=== PATIENT | male | born 1950 | race Caucasian/White ===

== ENCOUNTER 2018-11-13 16:33 | Observation (INO) ==
[2018-11-13] MEDS ORDERED: Morphine Sulfate 2 MG/ML SYRINGE IVP ONE ×2 (18:03→20:51)
[2018-11-13] MEDS ORDERED: Isovue-370 500 ML BOTTLE IVP ONE (18:04)
[2018-11-13 18:36] LABS: Basophils # 0.1 K/mcL (0.0-0.2); Basophils % 0.6 %; Eosinophils # 0.2 K/mcL (0.0-0.6); Hematocrit 42.6 % (37.5-50.1); Hemoglobin 14.1 g/dL (12.9-16.9); Immature Granulocytes % 0.6 % (0-4); Lymphocytes # 1.7 K/mcL (0.6-4.6); Lymphocytes % 14.3 %; Mean Corpuscular HGB Conc 33.1 g/dL (31.6-35.5); Mean Corpuscular Hemoglobin 32.2 pg (28.0-33.3); Mean Corpuscular Volume 97.3 fL (83.0-100.0); Mean Platelet Volume 8.7 fL (9.4-12.4); Monocytes # 1.1 K/mcL (0.0-1.3); Monocytes % 9.2 %; Neutrophils # 8.9 K/mcL (1.6-8.9); Platelet Count 244 K/mcL (140-400); Red Blood Count 4.38 M/mcL (4.19-5.50); Red Cell Distribution Width 13.8 % (11.5-14.5); Segmented Neutrophils % 73.3 %; White Blood Count 12.1 K/mcL (4.3-11.1)
[2018-11-13 18:36] LABS: Bilirubin,Urine Negative (Negative); Blood,Urine Large (Negative); Clarity,Urine Clear (Clear); Color,Urine Yellow (Yellow); Glucose,Urine (UA) Normal (Normal); Ketones,Urine Negative (Negative); Leukocyte Esterase,Urine Negative (Negative); Nitrite,Urine Negative (Negative); Protein,Urine 30 mg/dL (Neg-Trace); Urobilinogen,Urine Normal (Normal)
[2018-11-13 18:38] LABS: Bacteria,Urine None Seen per hpf (None-Few); Hyaline Casts,Urine None Seen per lpf (None-Few); RBC,Urine 15-30 per hpf (0-3); Squamous Epithelial Cell,Urine None Seen per lpf (None-Few); WBC,Urine 0-3 per hpf (0-3)
[2018-11-13 18:57] LABS: Albumin 3.4 g/dL (3.5-5.7); Albumin/Globulin Ratio 1.2 (1.1-2.2); Bilirubin,Direct 0.1 mg/dL (0.0-0.2); Bilirubin,Indirect 0.4 mg/dL (0.0-1.2); Bilirubin,Total 0.5 mg/dL (0.3-1.0); Calcium 9.3 mg/dL (8.6-10.3); Globulin 2.8 g/dL (2.4-3.5); Potassium 4.3 mEq/L (3.5-5.1); Total Protein 6.2 g/dL (6.4-8.9)
[2018-11-13] MEDS ORDERED: Ondansetron 4 MG/2 ML VIAL IVP ONE (20:51)
[2018-11-13] MEDS ORDERED: 0.9 % Sodium Chloride 1,000 ML IVC ONE (20:51)
[2018-11-13] MEDS ORDERED: Ondansetron 4 MG/2 ML VIAL IVP PRN (23:33)
[2018-11-14] MEDS: 0.9 % Sodium Chloride 1,000 ML IVC SCH ×3 (00:04→15:42)
[2018-11-14] MEDS: *HR* Metoprolol 5 MG/5 ML VIAL IVP SCH ×3 (00:05→18:12)
[2018-11-14] MEDS ORDERED: Albuterol 2.5 MG/3 ML NEBULIZER IH PRN ×2 (03:10→14:13)
[2018-11-14] MEDS ORDERED: Lidocaine -MPF 2% 2 ML VIAL ONE (09:52)
[2018-11-14] MEDS ORDERED: Lidocaine HCL 4 ML Topical Solution (Laryng-O-Jet Kit Sterile Pak) TP ONE (09:52)
[2018-11-14] MEDS ORDERED: *HR* Succinylcholine 200 MG/10 ML VIAL IVP ONE (09:52)
[2018-11-14] MEDS ORDERED: *HR* FentaNYL (PF) 100 MCG/2 ML VIAL ONE (09:52)
[2018-11-14] MEDS ORDERED: Ondansetron 4 MG/2 ML VIAL ONE (09:52)
[2018-11-14] MEDS ORDERED: Dexamethasone 4 MG/ML VIAL ONE (09:52)
[2018-11-14] MEDS ORDERED: *HR* Propofol 200 MG/20 ML VIAL IVP ONE (09:53)
[2018-11-14 10:40] LABS: Basophils # 0.1 K/mcL (0.0-0.2); Eosinophils # 0.2 K/mcL (0.0-0.6); Eosinophils % 3.2 %; Hemoglobin 13.5 g/dL (12.9-16.9); Immature Granulocytes % 0.3 % (0-4); Lymphocytes # 1.2 K/mcL (0.6-4.6); Lymphocytes % 17.8 %; Mean Corpuscular HGB Conc 32.1 g/dL (31.6-35.5); Mean Corpuscular Hemoglobin 32.6 pg (28.0-33.3); Mean Corpuscular Volume 101.4 fL (83.0-100.0); Monocytes # 0.7 K/mcL (0.0-1.3); Monocytes % 10.6 %; Neutrophils # 4.7 K/mcL (1.6-8.9); Platelet Count 239 K/mcL (140-400); Red Blood Count 4.14 M/mcL (4.19-5.50); Segmented Neutrophils % 67.1 %
[2018-11-14 11:00] LABS: Calcium 8.9 mg/dL (8.6-10.3); Potassium 4.2 mEq/L (3.5-5.1)
[2018-11-14] MEDS ORDERED: *HR* PHENYLEPHRINE 1,000 MCG/10 ML SYRINGE IVP ONE (12:41)
[2018-11-14] MEDS ORDERED: EPHEDrine 50 MG/ML VIAL ONE (12:45)
[2018-11-14] MEDS ORDERED: *HR* Promethazine 25 MG/ML VIAL IVP PRN (13:07)
[2018-11-14] MEDS ORDERED: *HR* OxyCODONE Immed Rel 5 MG TABLET PO PRN (13:07)
[2018-11-14] MEDS ORDERED: *HR* Labetalol 20 MG/4 ML SYRINGE IVP PRN (13:07)
[2018-11-14] MEDS ORDERED: Ondansetron 4 MG/2 ML VIAL IVP ONE (13:07)
[2018-11-14] MEDS ORDERED: *HR* HYDROmorphone (PF) 1 MG/ML SYRINGE IVP PRN (13:07)
[2018-11-14] MEDS ORDERED: Acetaminophen IV 1,000 MG/100 ML INFUS..BTL IVPB ONE (13:07)
[2018-11-14] MEDS ORDERED: Albuterol 2.5 MG/3 ML NEBULIZER IH ONE (13:07)
[2018-11-14] MEDS ORDERED: Ondansetron 4 MG/2 ML VIAL IVP PRN (14:13)
[2018-11-15] MEDS: *HR* Metoprolol 5 MG/5 ML VIAL IVP SCH ×2 (00:05→05:50)
[2018-11-15] MEDS: 0.9 % Sodium Chloride 1,000 ML IVC SCH ×2 (01:52→05:56)
[2018-11-15 06:50] VITALS: BP 156/74
== END 2018-11-15 11:20 | disposition home or self-care (01) ==
LOC: EMEROOARM 16:33 → 3ANU 16:33
PROVIDERS: ADMIT Surgery; ATTEND Surgery

== ENCOUNTER 2018-11-16 08:37 | Observation (INO) ==
[2018-11-16] MEDS ORDERED: Ondansetron 4 MG/2 ML VIAL IVP ONE (09:06)
[2018-11-16] MEDS ORDERED: Morphine Sulfate 2 MG/ML SYRINGE IVP ONE ×2 (09:06→11:12)
[2018-11-16] MEDS ORDERED: 0.9 % Sodium Chloride 1,000 ML IVC ONE ×2 (09:06→11:12)
--- NOTE | 2018-11-16 09:06 | Emergency Department Note ---
Disposition Clinical Impression: Post-operative pain Hematuria Qualifiers: Hematuria type: other microscopic Qualified Code(s): R31.29 - Other microscopic hematuria Abdominal pain Qualifiers: Abdominal location: generalized Qualified Code(s): R10.84 - Generalized abdominal pain Disposition: Admitted As Inpatient Condition: Fair Referrals: Sugar Enriquez MD [Primary Care Provider] - Time of Disposition: 13:15 Abdominal Pain HPI - General Chief Complaint: ED Abdominal Pain Stated Complaint: abd swelling s/p sx Time Seen by Provider: 11/16/18 08:54 Source: patient Mode of arrival: private vehicle Limitations: no limitations Nursing Notes Reviewed: Yes Vital Signs Reviewed: Yes - History of Present Illness HPI Narrative: Patient presents from home for evaluation of abdominal pain and distention. He states that he had hernia repair surgery on Friday and was doing well until last night. He woke up in the middle of the night and noticed increased pain, then this morning he noticed significant abdominal distention. He also describes having shaking chills. He is not sure if he has had a fever or not. He denies nausea, vomiting, diarrhea, dysuria, increased urinary frequency or hematuria. He denies cough, shortness of breath, dyspnea on exertion, leg pain or swelling, chest pain or syncope. Pt Subjective Complaint: abdominal pain, other (Distention) Onset (ago): hour(s) Consistency: constant Location: diffuse Pain Severity: severe Pain Scale: 10 Quality: cramping, fullness, sharp Radiation: none Migration to: no migration Improves with: nothing Worsens with: movement Context: recent surgery/procedure Associated symptoms: Reports: chills. Denies: nausea, vomiting, diarrhea, fever, constipation, dysuria, hematemesis, hematochezia, melena, hematuria, anorexia, syncope Treatments prior to arrival: none - Related Data Home Medications Medication Instructions Recorded Confirmed Budesonide/Formoterol 160/4.5 2 puff IH BIDR 08/03/15 11/14/18 [Symbicort 160/4.5] Albuterol Neb [Proventil Neb] 2.5 mg IH TID PRN 11/14/18 11/14/18 Metoprolol [Lopressor] 25 mg PO DAILY 11/14/18 11/14/18 Allergies Allergy/AdvReac Type Severity Reaction Status Date / Time No Known Allergies Allergy Verified 11/16/18 08:43 All systems ED: reviewed and negative except as stated. Review of Systems: As Per HPI Constitutional: Reports: chills. Denies: fever (unsure), weakness Cardiovascular: Denies: chest pain, palpitations, dyspnea on exertion, orthopnea, edema, syncope, paroxysmal nocturnal dyspnea Respiratory: Denies: cough, dyspnea, wheezes, hemoptysis, stridor, sputum production Gastrointestinal: Reports: as per HPI, abdominal pain. Denies: nausea, vomiting, diarrhea, constipation, hematemesis, melena, hematochezia Genitourinary: Denies: urgency, dysuria, frequency, hematuria Musculoskeletal: Denies: back pain, joint swelling, arthralgia Integumentary: Denies: rash, lesions Neurological: Denies: headache, weakness, numbness, paresthesias, vertigo Hematological/Lymphatic: Denies: easy bleeding, easy bruising Allergic/Immunologic: Denies: facial swelling Abdominal Pain PMH - Past Medical History Medical history: Reports: atrial fibrillation, CVA, hypertension Reports: diverticulosis, diverticulitis Male Surgical History: Reports: other Psychiatric history: Reports: no psych history - Social History Smoking status: Current every day smoker Alcohol use: Reports: none Drug use: Reports: none Physical Exam - General Limitations: no limitations General appearance: alert, in no apparent distress - Head Head exam: atraumatic, normocephalic, normal inspection - Eye Eye exam: Present: normal appearance. Absent: scleral icterus, conjunctival injection, periorbital swelling - ENT ENT exam: mucous membranes moist - Neck Neck exam: Present: normal inspection, full ROM, trachea midline. Absent: tenderness, meningismus - Respiratory Respiratory exam: Present: normal lung sounds bilaterally. Absent: respiratory distress, wheezes - Cardiovascular Cardiovascular exam: Present: regular rate, normal rhythm, normal heart sounds - Abdominal Exam Abdominal exam: Present: soft, tenderness, distention, guarding, normal bowel sounds, incision, other (Surgical wound in the left lower quadrant with kenn in place. There is a half dollar size erythematous area superior to the middle of the incision). Absent: rigidity, Davis's sign, Rovsing's sign, ascites, mass Abdominal tenderness: Present: diffuse, moderate - Extremities Exam Extremities exam: Present: normal inspection. Absent: pedal edema - Back Exam Back exam: Present: normal inspection - Neurological Exam Neurological exam: Present: alert, oriented X3, CN II-XII intact, normal gait. Absent: motor sensory deficit - Psychiatric Psychiatric exam: Present: normal affect, normal mood - Skin Skin exam: Present: warm, dry, intact, normal color Course Course Narrative: Patient to ED postop day three, status post open repair with mesh of an incisional hernia. He states he was doing well, Friday and Friday, then symptoms began last night with shaking chills, abdominal pain, and this morning with significant abdominal distention. He is not sure if he has had a fever or not. No nausea, vomiting or diarrhea. No bowel movement 3 days. However, he states that he has not had much to eat. Patient brought back to room 18 helped into a gown and and examined. Labs, chest x-ray and pain meds have been ordered. Results discussed with the patient including CT findings and recommendation of the surgeon. Patient states that he is relieved with the results. However, does not fill comfortable going home with this continued pain and distention. He states that he is concerned he would have to come back as his home medications are not controlling his pain. He is also concerned that he has not had a bowel movement two days despite not eating much. Surgicalist paged again for consult. - Reevaluation(s) Reevaluation #1: Patient's pain is a "7/10". He requests additional pain meds. This has been orde red. Time: 11:04 - Consultations Consultation #1: Case discussed with the surgical list, Dr. Rangel Christensen. She recommends CT of the abdomen and pelvis with IV contrast. The patient's GFR is 41. Plan was discussed with the scale technician. She states that she will contact the radiologist and they will most likely recommend reducing the dosage of contrast. Time: 10:51 Consultation #2: Case discussed with the radiologist. He recommends not using IV contrast for the CT abdomen and pelvis for this patient today. Given his newly abnormal GFR. Time: 11:14 Consultation #3: Results and patient current state discussed with Dr. Rangel Christensen. She states that the patient may be admitted to her service. Time: 13:06 Vital Signs Temperature 97.4 F L 11/16/18 08:40 Pulse Rate 85 11/16/18 08:40 Respiratory Rate 16 11/16/18 08:40 Blood Pressure 170/98 11/16/18 08:40 O2 Sat by Pulse Oximetry 96 11/16/18 08:40 Temperature 97.4 F L 11/16/18 09:37 Pulse Rate 81 11/16/18 10:48 Respiratory Rate 16 11/16/18 10:48 Blood Pressure 188/113 11/16/18 10:48 O2 Sat by Pulse Oximetry 100 11/16/18 10:48 Oxygen Delivery Oxygen Delivery Room Air Abdominal Pain - Medical Records Medical records reviewed: Yes I reviewed the patient's medical records. - Lab Data Lab results reviewed: Yes I reviewed the patient's lab results. Lab results narrative: Laboratory Last Values WBC 13.8 K/mcL (4.3-11.1) H D 11/16/18 09:23 RBC 4.21 M/mcL (4.19-5.50) 11/16/18 09:23 Hgb 13.7 g/dL (12.9-16.9) 11/16/18 09:23 Hct 41.0 % (37.5-50.1) 11/16/18 09:23 MCV 97.4 fL (83.0-100.0) 11/16/18 09:23 MCH 32.5 pg (28.0-33.3) 11/16/18 09:23 MCHC 33.4 g/dL (31.6-35.5) 11/16/18 09:23 RDW 14.0 % (11.5-14.5) 11/16/18 09:23 Plt Count 252 K/mcL (140-400) 11/16/18 09:23 MPV 8.9 fL (9.4-12.4) L 11/16/18 09:23 Immature Gran % 0.4 % (0-4) 11/16/18 09:23 Seg Neutrophils % 82.3 % 11/16/18 09:23 Lymphocytes % 9.2 % 11/16/18 09:23 Monocytes % 7.0 % 11/16/18 09:23 Eosinophils % 1.0 % 11/16/18 09:23 Basophils % 0.1 % 11/16/18 09:23 Neutrophils # 11.4 K/mcL (1.6-8.9) H 11/16/18 09:23 Lymphocytes # 1.3 K/mcL (0.6-4.6) 11/16/18 09:23 Monocytes # 1.0 K/mcL (0.0-1.3) 11/16/18 09:23 Eosinophils # 0.1 K/mcL (0.0-0.6) 11/16/18 09:23 Basophils # 0.0 K/mcL (0.0-0.2) 11/16/18 09:23 Sodium 135 mEq/L (136-145) L 11/16/18 09:23 Potassium 4.1 mEq/L (3.5-5.1) 11/16/18 09:23 Chloride 105 mEq/L (98-107) 11/16/18 09:23 Carbon Dioxide 26 mEq/L (23-29) 11/16/18 09:23 BUN 34 mg/dL (8-23) H 11/16/18 09:23 Creatinine 1.67 mg/dL (0.70-1.30) H 11/16/18 09:23 Est GFR ( Amer) 50 (> 60) L 11/16/18 09:23 Est GFR (Non-Af Amer) 41 (> 60) L 11/16/18 09:23 BUN/Creatinine Ratio 20 (6-26) 11/16/18 09:23 Glucose 97 mg/dL (70-105) 11/16/18 09:23 Calculated Osmolality 288 (280-300) 11/16/18 09:23 Lactic Acid 1.2 mmol/L (0.5-2.2) 11/16/18 09:23 Calcium 9.4 mg/dL (8.6-10.3) 11/16/18 09:23 Total Bilirubin 0.4 mg/dL (0.3-1.0) 11/16/18 09:23 Direct Bilirubin 0.1 mg/dL (0.0-0.2) 11/16/18 09:23 Indirect Bilirubin 0.3 mg/dL (0.0-1.2) 11/16/18 09:23 AST 21 Units/L (13-39) 11/16/18 09:23 ALT 9 Units/L (7-52) 11/16/18 09:23 Alkaline Phosphatase 71 Units/L (34-104) 11/16/18 09:23 Serum Total Protein 6.0 g/dL (6.4-8.9) L 11/16/18 09:23 Albumin 3.3 g/dL (3.5-5.7) L 11/16/18 09:23 Globulin 2.7 g/dL (2.4-3.5) 11/16/18 09:23 Albumin/Globulin Ratio 1.2 (1.1-2.2) 11/16/18 09:23 Urine Color Yellow (Yellow) 11/16/18 10:07 Urine Clarity Clear (Clear) 11/16/18 10:07 Urine pH 6.0 pH Units (5.0-8.0) 11/16/18 10:07 Ur Specific [place] 1.015 (1.010-1.025) 11/16/18 10:07 Urine Protein 100 mg/dL (Neg-Trace) H 11/16/18 10:07 Urine Glucose (UA) Normal mg/dL (Normal) 11/16/18 10:07 Urine Ketones Negative mg/dL (Negative) 11/16/18 10:07 Urine Blood Large (Negative) H 11/16/18 10:07 Urine Nitrite Negative (Negative) 11/16/18 10:07 Urine Bilirubin Negative (Negative) 11/16/18 10:07 Urine Urobilinogen Normal mg/dL (Normal) 11/16/18 10:07 Ur Leukocyte Esterase Negative (Negative) 11/16/18 10:07 Urine Microscopic RBC 50-100 per hpf (0-3) H 11/16/18 10:07 Urine Microscopic WBC 0-3 per hpf (0-3) 11/16/18 10:07 Ur Squamous Epith Cells Few per lpf (None-Few) 11/16/18 10:07 Urine Bacteria None Seen per hpf (None-Few) 11/16/18 10:07 Hyaline Casts None Seen per lpf (None-Few) 11/16/18 10:07 Ur Culture Indicated? NO (NO) 11/16/18 10:07 Result diagrams: 11/16/18 09:23 11/16/18 09:23 Lab Results 11/16/18 11/16/18 11/16/18 Range/Units 09:23 09:23 09:23 WBC 13.8 H D (4.3-11.1) K/mcL RBC 4.21 (4.19-5.50) M/mcL Hgb 13.7 (12.9-16.9) g/dL Hct 41.0 (37.5-50.1) % MCV 97.4 (83.0-100.0) fL MCH 32.5 (28.0-33.3) pg MCHC 33.4 (31.6-35.5) g/dL RDW 14.0 (11.5-14.5) % Plt Count 252 (140-400) K/mcL MPV 8.9 L (9.4-12.4) fL Immature Gran % 0.4 (0-4) % Seg Neutrophils % 82.3 % Lymphocytes % 9.2 % Monocytes % 7.0 % Eosinophils % 1.0 % Basophils % 0.1 % Neutrophils # 11.4 H (1.6-8.9) K/mcL Lymphocytes # 1.3 (0.6-4.6) K/mcL Monocytes # 1.0 (0.0-1.3) K/mcL Eosinophils # 0.1 (0.0-0.6) K/mcL Basophils # 0.0 (0.0-0.2) K/mcL Sodium 135 L (136-145) mEq/L Potassium 4.1 (3.5-5.1) mEq/L Chloride 105 (98-107) mEq/L Carbon Dioxide 26 (23-29) mEq/L BUN 34 H (8-23) mg/dL Creatinine 1.67 H (0.70-1.30) mg/dL Est GFR ( Amer) 50 L (> 60) Est GFR (Non-Af Amer) 41 L (> 60) BUN/Creatinine Ratio 20 (6-26) Glucose 97 (70-105) mg/dL Calculated Osmolality 288 (280-300) Lactic Acid 1.2 (0.5-2.2) mmol/L Calcium 9.4 (8.6-10.3) mg/dL Total Bilirubin 0.4 (0.3-1.0) mg/dL Direct Bilirubin 0.1 (0.0-0.2) mg/dL Indirect Bilirubin 0.3 (0.0-1.2) mg/dL AST 21 (13-39) Units/L ALT 9 (7-52) Units/L Alkaline Phosphatase 71 (34-104) Units/L Serum Total Protein 6.0 L (6.4-8.9) g/dL Albumin 3.3 L (3.5-5.7) g/dL Globulin 2.7 (2.4-3.5) g/dL Albumin/Globulin Ratio 1.2 (1.1-2.2) Urine Color (Yellow) Urine Clarity (Clear) Urine pH (5.0-8.0) pH Units Ur Specific [place] (1.010-1.025) Urine Protein (Neg-Trace) mg/dL Urine Glucose (UA) (Normal) mg/dL Urine Ketones (Negative) mg/dL Urine Blood (Negative) Urine Nitrite (Negative) Urine Bilirubin (Negative) Urine Urobilinogen (Normal) mg/dL Ur Leukocyte Esterase (Negative) Urine Microscopic RBC (0-3) per hpf Urine Microscopic WBC (0-3) per hpf Ur Squamous Epith Cells (None-Few) per lpf Urine Bacteria (None-Few) per hpf Hyaline Casts (None-Few) per lpf Ur Culture Indicated? (NO) 11/16/18 Range/Units 10:07 WBC (4.3-11.1) K/mcL RBC (4.19-5.50) M/mcL Hgb (12.9-16.9) g/dL Hct (37.5-50.1) % MCV (83.0-100.0) fL MCH (28.0-33.3) pg MCHC (31.6-35.5) g/dL RDW (11.5-14.5) % Plt Count (140-400) K/mcL MPV (9.4-12.4) fL Immature Gran % (0-4) % Seg Neutrophils % % Lymphocytes % % Monocytes % % Eosinophils % % Basophils % % Neutrophils # (1.6-8.9) K/mcL Lymphocytes # (0.6-4.6) K/mcL Monocytes # (0.0-1.3) K/mcL Eosinophils # (0.0-0.6) K/mcL Basophils # (0.0-0.2) K/mcL Sodium (136-145) mEq/L Potassium (3.5-5.1) mEq/L Chloride (98-107) mEq/L Carbon Dioxide (23-29) mEq/L BUN (8-23) mg/dL Creatinine (0.70-1.30) mg/dL Est GFR ( Amer) (> 60) Est GFR (Non-Af Amer) (> 60) BUN/Creatinine Ratio (6-26) Glucose (70-105) mg/dL Calculated Osmolality (280-300) Lactic Acid (0.5-2.2) mmol/L Calcium (8.6-10.3) mg/dL Total Bilirubin (0.3-1.0) mg/dL Direct Bilirubin (0.0-0.2) mg/dL Indirect Bilirubin (0.0-1.2) mg/dL AST (13-39) Units/L ALT (7-52) Units/L Alkaline Phosphatase (34-104) Units/L Serum Total Protein (6.4-8.9) g/dL Albumin (3.5-5.7) g/dL Globulin (2.4-3.5) g/dL Albumin/Globulin Ratio (1.1-2.2) Urine Color Yellow (Yellow) Urine Clarity Clear (Clear) Urine pH 6.0 (5.0-8.0) pH Units Ur Specific [place] 1.015 (1.010-1.025) Urine Protein 100 H (Neg-Trace) mg/dL Urine Glucose (UA) Normal (Normal) mg/dL Urine Ketones Negative (Negative) mg/dL Urine Blood Large H (Negative) Urine Nitrite Negative (Negative) Urine Bilirubin Negative (Negative) Urine Urobilinogen Normal (Normal) mg/dL Ur Leukocyte Esterase Negative (Negative) Urine Microscopic RBC 50-100 H (0-3) per hpf Urine Microscopic WBC 0-3 (0-3) per hpf Ur Squamous Epith Cells Few (None-Few) per lpf Urine Bacteria None Seen (None-Few) per hpf Hyaline Casts None Seen (None-Few) per lpf Ur Culture Indicated? NO (NO) - Radiology Data Radiology results reviewed: Yes I reviewed the patient's radiology results. Chest X-Ray 11/16/18 09:11 IMPRESSION: No acute pneumonia or significant atelectasis. D/ / Stiven Mayer MD / Stiven Mayer MD Interpreting Provider: Stiven Mayer MD
[2018-11-16 09:35] LABS: Basophils % 0.1 %; Eosinophils # 0.1 K/mcL (0.0-0.6); Hemoglobin 13.7 g/dL (12.9-16.9); Immature Granulocytes % 0.4 % (0-4); Lymphocytes # 1.3 K/mcL (0.6-4.6); Lymphocytes % 9.2 %; Mean Corpuscular HGB Conc 33.4 g/dL (31.6-35.5); Mean Corpuscular Hemoglobin 32.5 pg (28.0-33.3); Mean Corpuscular Volume 97.4 fL (83.0-100.0); Mean Platelet Volume 8.9 fL (9.4-12.4); Neutrophils # 11.4 K/mcL (1.6-8.9); Platelet Count 252 K/mcL (140-400); Red Blood Count 4.21 M/mcL (4.19-5.50); Segmented Neutrophils % 82.3 %; White Blood Count 13.8 K/mcL (4.3-11.1)
[2018-11-16 09:53] LABS: Albumin 3.3 g/dL (3.5-5.7); Albumin/Globulin Ratio 1.2 (1.1-2.2); Bilirubin,Direct 0.1 mg/dL (0.0-0.2); Bilirubin,Indirect 0.3 mg/dL (0.0-1.2); Bilirubin,Total 0.4 mg/dL (0.3-1.0); Calcium 9.4 mg/dL (8.6-10.3); Globulin 2.7 g/dL (2.4-3.5); Potassium 4.1 mEq/L (3.5-5.1)
[2018-11-16 10:28] LABS: Bilirubin,Urine Negative (Negative); Blood,Urine Large (Negative); Clarity,Urine Clear (Clear); Color,Urine Yellow (Yellow); Glucose,Urine (UA) Normal (Normal); Ketones,Urine Negative (Negative); Leukocyte Esterase,Urine Negative (Negative); Nitrite,Urine Negative (Negative); Protein,Urine 100 mg/dL (Neg-Trace); Specific Gravity,Urine 1.015 (1.010-1.025); Urobilinogen,Urine Normal (Normal)
[2018-11-16 10:34] LABS: Bacteria,Urine None Seen per hpf (None-Few); Hyaline Casts,Urine None Seen per lpf (None-Few); RBC,Urine 50-100 per hpf (0-3); Squamous Epithelial Cell,Urine Few per lpf (None-Few); WBC,Urine 0-3 per hpf (0-3)
[2018-11-16] MEDS ORDERED: Isovue-370 500 ML BOTTLE IVP ONE (10:49)
[2018-11-16] MEDS ORDERED: Mag Hydrox/Al Hydrox/Simeth 30 ML UDC PO ONE (13:24)
[2018-11-16] MEDS ORDERED: Budesonide/Formoterol 160/4.5 1 PUFF INH IH PRN (14:09)
[2018-11-16] MEDS ORDERED: Albuterol 2.5 MG/3 ML NEBULIZER IH PRN (14:09)
--- NOTE | 2018-11-16 14:09 | Acute Care Surgery H&P ---
Date of Encounter: 11/16/18 Time of Encounter: 14:00 Assessment and Plan (1) Abdominal pain Current Visit: Yes Status: Acute The assessment and plan as outlined above was discussed with the patient and/or family members who expressed understanding and agreement. All questions were answered. POD#3 ventral hernia repair with mesh. No complications appreciated. Treat pain with PO Oxycodone and IV acetominophen. IV Zosyn for leukocytosis although, it is unclear as to etiology of elevated white count. Elevated creatinine and low sodium; give IVF with .9 normal saline. Qualifiers: Abdominal location: generalized Qualified Code(s): R10.84 - Generalized abdominal pain (2) Post-operative pain Current Visit: Yes Status: Acute see above (3) HTN (hypertension) Current Visit: Yes Status: Acute Continue home meds Qualifiers: Qualified Code(s): I10 - Essential (primary) hypertension (4) Leukocytosis Current Visit: Yes Status: Acute see above Qualifiers: Leukocytosis type: unspecified Qualified Code(s): D72.829 - Elevated white blood cell count, unspecified (5) Elevated serum creatinine Current Visit: Yes Status: Acute see above (6) Hyponatremia Current Visit: Yes Status: Acute see above History of Present Illness Chief complaint: abdominal pain HPI: Mr. Emanuel is a 68 year old male POD#3 ventral hernia repair with mesh presents to [facility] c/o uncontrolled abdominal pain. He reports taking pain medicine that he was prescribed post-op that isn't helping. He reports nausea without vomiting. He reports no BM since surgery. He denies fevers. Past Med Surg Social Fam HX - Past Medical History Medical history: atrial fibrillation, CVA, hypertension Additional medical history: gout Psychiatric history: no psych history - Past Surgical History Surgical History: appendectomy, colostomy, other (The patient reports a fluoroscopic clip placement related to his stroke. This may be an atrial appendage clamp procedure or a watchman procedure) Additional surgical history: Colostomy 2012; since reversed. clip on artery at heart. right leg artery clot removed - Social History Smoking Status: Current every day smoker Smokeless Tobacco Status: No Alcohol use: none Drug use: none Medications and Allergies Budesonide/Formoterol 160/4.5 [Symbicort 160/4.5] 2 puff IH BIDR PRN 05/05/16 [History] Albuterol Neb [Proventil Neb] 2.5 mg IH TID PRN 11/14/18 [History] Metoprolol [Lopressor] 25 mg PO DAILY 11/14/18 [History] Allergy/AdvReac Type Severity Reaction Status Date / Time No Known Allergies Allergy Verified 11/16/18 08:43 Review of Systems All systems PM: The remainder of the systems were reviewed and are negative - Constitutional as per HPI, chills, fatigue, malaise, no fever(s), no night sweats, no weakness - EENT Nose, mouth and throat: dry mouth, nasal congestion, nasal discharge, sinus pain, sinus pressure, sore throat - Cardiovascular no chest pain, no diaphoresis, no dyspnea, no edema - Respiratory no cough, no dyspnea, no wheezing - Gastrointestinal abdominal pain, bloating, constipation, diarrhea, nausea, no heartburn, no hematemesis, no vomiting - Genitourinary no dysuria, no flank pain, no urinary frequency - Musculoskeletal no back pain, no joint swelling, no limited range of motion, no neck pain - Integumentary no dry skin, no pruritus, no rash, no wounds, no jaundice - Neurological no abnormal gait, no confusion, no dizziness, no focal weakness, no weakness - Psychiatric no anxiety, no depression - Hematologic/Lymphatic no easy bleeding, no easy bruising General Surgery Exam Initial Vital Signs Temp Pulse Resp BP Pulse Ox 97.4 F L 85 16 170/98 96 11/16/18 08:40 11/16/18 08:40 11/16/18 08:40 11/16/18 08:40 11/16/18 08:40 - General physical appearance no distress, moderate pain. negative: jaundice - Eyes PERRL, normal ocular movement. negative: icteric - ENT no congestion, dry mucosa. negative: nasal discharge - Neck trachea midline, no venous distension - Respiratory normal respiratory effort, clear to auscultation - Cardiovascular Cardiovascular exam: Present: RRR. Absent: JVD - Abdomen Abdomen general surgery: Present: non tender, distended, tender. Absent: bowel sounds present, soft Abdominal Tenderness: Present: diffusely - Incision Incision: Present: clean and dry, intact - Integumentary Integumentary general surgery: Present: warm and dry - Neurologic Present: CN 2-12 grossly intact, normal coordination - Musculoskeletal Present: normal posture - Psychiatric Psychiatric general surgery: Present: A&Ox3, appropriate Results - Labs 11/16/18 09:23 11/16/18 09:23 Abnormal lab results WBC 13.8 K/mcL (4.3-11.1) H D 11/16/18 09:23 MPV 8.9 fL (9.4-12.4) L 11/16/18 09:23 Neutrophils # 11.4 K/mcL (1.6-8.9) H 11/16/18 09:23 Sodium 135 mEq/L (136-145) L 11/16/18 09:23 BUN 34 mg/dL (8-23) H 11/16/18 09:23 Creatinine 1.67 mg/dL (0.70-1.30) H 11/16/18 09:23 Est GFR ( Amer) 50 (> 60) L 11/16/18 09:23 Est GFR (Non-Af Amer) 41 (> 60) L 11/16/18 09:23 Serum Total Protein 6.0 g/dL (6.4-8.9) L 11/16/18 09:23 Albumin 3.3 g/dL (3.5-5.7) L 11/16/18 09:23 Urine Protein 100 mg/dL (Neg-Trace) H 11/16/18 10:07 Urine Blood Large (Negative) H 11/16/18 10:07 Urine Microscopic RBC 50-100 per hpf (0-3) H 11/16/18 10:07 Diabetes panel 11/16/18 Range/Units 09:23 Sodium 135 L (136-145) mEq/L Potassium 4.1 (3.5-5.1) mEq/L Chloride 105 (98-107) mEq/L Carbon Dioxide 26 (23-29) mEq/L BUN 34 H (8-23) mg/dL Creatinine 1.67 H (0.70-1.30) mg/dL Glucose 97 (70-105) mg/dL Calcium 9.4 (8.6-10.3) mg/dL AST 21 (13-39) Units/L ALT 9 (7-52) Units/L Alkaline Phosphatase 71 (34-104) Units/L Albumin 3.3 L (3.5-5.7) g/dL Calcium panel 11/16/18 Range/Units 09:23 Calcium 9.4 (8.6-10.3) mg/dL Albumin 3.3 L (3.5-5.7) g/dL Pituitary panel 11/16/18 Range/Units 09:23 Sodium 135 L (136-145) mEq/L Potassium 4.1 (3.5-5.1) mEq/L Chloride 105 (98-107) mEq/L Carbon Dioxide 26 (23-29) mEq/L BUN 34 H (8-23) mg/dL Creatinine 1.67 H (0.70-1.30) mg/dL Glucose 97 (70-105) mg/dL Calcium 9.4 (8.6-10.3) mg/dL Adrenal panel 11/16/18 Range/Units 09:23 Sodium 135 L (136-145) mEq/L Potassium 4.1 (3.5-5.1) mEq/L Chloride 105 (98-107) mEq/L Carbon Dioxide 26 (23-29) mEq/L BUN 34 H (8-23) mg/dL Creatinine 1.67 H (0.70-1.30) mg/dL Glucose 97 (70-105) mg/dL Calcium 9.4 (8.6-10.3) mg/dL Total Bilirubin 0.4 (0.3-1.0) mg/dL AST 21 (13-39) Units/L ALT 9 (7-52) Units/L Alkaline Phosphatase 71 (34-104) Units/L Albumin 3.3 L (3.5-5.7) g/dL All other labs normal. - Imaging CT scan - abdomen: image reviewed (No acute process; previous hernia is reduced) CT scan - pelvis: image reviewed
[2018-11-16] MEDS: 0.9 % Sodium Chloride 1,000 ML IVC SCH (15:21)
[2018-11-16] MEDS: Piperacillin/Tazobactam 3.375 GM in 0.9 % Sodium Chloride Mini Bag 100 ML IVPB SCH (17:14)
[2018-11-16] MEDS: Acetaminophen IV 1,000 MG/100 ML INFUS..BTL IVPB SCH (18:21)
[2018-11-16] MEDS: *HR* Heparin 5,000 UNIT/ML VIAL SQ SCH (18:21)
[2018-11-16] MEDS ORDERED: Bisacodyl 10 MG RECTAL SUPPOSITORY RC SCH (21:00)
[2018-11-17] MEDS: Piperacillin/Tazobactam 3.375 GM in 0.9 % Sodium Chloride Mini Bag 100 ML IVPB SCH (01:31)
[2018-11-17] MEDS: Acetaminophen IV 1,000 MG/100 ML INFUS..BTL IVPB SCH ×2 (01:31→06:18)
[2018-11-17] MEDS: 0.9 % Sodium Chloride 1,000 ML IVC SCH (04:27)
[2018-11-17] MEDS: *HR* Heparin 5,000 UNIT/ML VIAL SQ SCH (06:18)
[2018-11-17 06:37] LABS: Basophils # 0.1 K/mcL (0.0-0.2); Basophils % 0.9 %; Eosinophils # 0.3 K/mcL (0.0-0.6); Eosinophils % 3.1 %; Hematocrit 41.1 % (37.5-50.1); Hemoglobin 13.1 g/dL (12.9-16.9); Immature Granulocytes % 0.6 % (0-4); Lymphocytes # 1.6 K/mcL (0.6-4.6); Lymphocytes % 19.7 %; Mean Corpuscular HGB Conc 31.9 g/dL (31.6-35.5); Mean Corpuscular Hemoglobin 32.3 pg (28.0-33.3); Mean Corpuscular Volume 101.2 fL (83.0-100.0); Mean Platelet Volume 9.2 fL (9.4-12.4); Monocytes # 0.8 K/mcL (0.0-1.3); Monocytes % 9.4 %; Neutrophils # 5.4 K/mcL (1.6-8.9); Platelet Count 226 K/mcL (140-400); Red Blood Count 4.06 M/mcL (4.19-5.50); Segmented Neutrophils % 66.3 %; White Blood Count 8.2 K/mcL (4.3-11.1)
[2018-11-17 07:00] LABS: Calcium 8.8 mg/dL (8.6-10.3)
[2018-11-17 07:10] VITALS: BP 158/84
--- NOTE | 2018-11-17 08:39 | Discharge Summary ---
<Palma Knutson - Last Filed: 11/17/18 08:50> Date of Encounter: 11/17/18 Time of Encounter: 08:37 - Discharge Diagnosis (1) Post-operative pain Priority: Primary Status: Acute (2) Constipation Priority: Primary Status: Acute Qualifiers: Constipation type: unspecified constipation type Qualified Code(s): K59.00 - Constipation, unspecified General Surgery Exam Initial Vital Signs Temp Pulse Resp BP Pulse Ox 97.4 F L 85 16 170/98 96 11/16/18 08:40 11/16/18 08:40 11/16/18 08:40 11/16/18 08:40 11/16/18 08:40 - General physical appearance well nourished, no distress - Neck trachea midline - Respiratory normal expansion, normal respiratory effort - Cardiovascular Cardiovascular exam: Present: RRR - Abdomen Abdomen general surgery: Present: bowel sounds present, soft, non tender - Incision Incision: Present: clean and dry, intact - Integumentary Integumentary general surgery: Present: warm and dry - Neurologic Present: normal coordination, normal sensation - Musculoskeletal Present: normal posture - Psychiatric Psychiatric general surgery: Present: A&Ox3 - Hospital Course Hospital course: Mr. Emanuel is a 68 year old male who underwent repair of incarcerated incisional hernia with mesh on 11/14/[address] Garcia. He presented to the emergency department on 11/16/2018 for postoperative abdominal pain and was noted to be constipated. Per orders review, he did not fill his oxycodone that was prescribed to him until 11/15/2018. His postoperative pain was treated with sub lingual oxycodone and he was prescribed about regimen and did have a bowel movement. He states his intends have resolved. He is ambulating avoiding without difficulty, tolerating diet without nausea or vomiting, vital signs stable, and he is afebrile. We will begin discharge planning to home with follow-up in the office in 2 to 3 weeks. - Time Spent with Patient Total time spent providing and/or coordinating discharge services: - Discharge Medications Prescriptions: New Docusate Sodium [Colace] 100 mg PO BID PRN #30 capsule PRN Reason: Contstipation Ibuprofen 800 mg PO Q8H PRN #30 tablet PRN Reason: Postsurgical pain Polyethylene Glycol 3350 [MiraLAX Powder Bulk 17.9 Oz] 1 scoop PO DAILY 30 Days #510 gm Ondansetron ODT [Zofran ODT] 4 mg SL Q4HR PRN #15 tab.rapdis PRN Reason: Postsurgical nausea Continued Albuterol Neb [Proventil Neb] 2.5 mg IH TID PRN PRN Reason: Shortness Of Breath Metoprolol [Lopressor] 25 mg PO DAILY Budesonide/Formoterol 160/4.5 [Symbicort 160/4.5] 2 puff IH BIDR PRN PRN Reason: Shortness Of Breath Home Medications: Budesonide/Formoterol 160/4.5 [Symbicort 160/4.5] 2 puff IH BIDR PRN 08/03/15 [History] Albuterol Neb [Proventil Neb] 2.5 mg IH TID PRN 11/14/18 [History] Metoprolol [Lopressor] 25 mg PO DAILY 11/14/18 [History] Docusate Sodium [Colace] 100 mg PO BID PRN #30 capsule 11/17/18 [Rx] Ibuprofen 800 mg PO Q8H PRN #30 tablet 11/17/18 [Rx] Ondansetron ODT [Zofran ODT] 4 mg SL Q4HR PRN #15 tab.rapdis 11/17/18 [Rx] Polyethylene Glycol 3350 [MiraLAX Powder Bulk 17.9 Oz] 1 scoop PO DAILY 30 Days #510 gm 11/17/18 [Rx] Allergies/Adverse Reactions: Allergy/AdvReac Type Severity Reaction Status Date / Time No Known Allergies Allergy Verified 11/16/18 08:43 Date of admission: 11/16/18 13:27 Primary care physician: Sugar Enriquez Discharging clinician: Bobby Knutson) Anticipated date of discharge: 11/17/18 Labs on day of discharge: Labs from last 24 hours 11/17/18 11/17/18 11/16/18 05:45 05:45 10:07 WBC 8.2 RBC 4.06 L Hgb 13.1 Hct 41.1 MCV 101.2 H MCH 32.3 MCHC 31.9 RDW 14.0 Plt Count 226 MPV 9.2 L Immature Gran % 0.6 Seg Neutrophils % 66.3 Lymphocytes % 19.7 Monocytes % 9.4 Eosinophils % 3.1 Basophils % 0.9 Neutrophils # 5.4 Lymphocytes # 1.6 Monocytes # 0.8 Eosinophils # 0.3 Basophils # 0.1 Sodium 138 Potassium 5.0 Chloride 106 Carbon Dioxide 25 BUN 26 H Creatinine 1.48 H Est GFR ( Amer) 57 L Est GFR (Non-Af Amer) 47 L BUN/Creatinine Ratio 18 Glucose 66 L Calculated Osmolality 289 Lactic Acid Calcium 8.8 Total Bilirubin Direct Bilirubin Indirect Bilirubin AST ALT Alkaline Phosphatase Serum Total Protein Albumin Globulin Albumin/Globulin Ratio Urine Color Yellow Urine Clarity Clear Urine pH 6.0 Ur Specific [place] 1.015 Urine Protein 100 H Urine Glucose (UA) Normal Urine Ketones Negative Urine Blood Large H Urine Nitrite Negative Urine Bilirubin Negative Urine Urobilinogen Normal Ur Leukocyte Esterase Negative Urine Microscopic RBC 50-100 H Urine Microscopic WBC 0-3 Ur Squamous Epith Cells Few Urine Bacteria None Seen Hyaline Casts None Seen Ur Culture Indicated? NO 11/16/18 11/16/18 11/16/18 09:23 09:23 09:23 WBC 13.8 H D RBC 4.21 Hgb 13.7 Hct 41.0 MCV 97.4 MCH 32.5 MCHC 33.4 RDW 14.0 Plt Count 252 MPV 8.9 L Immature Gran % 0.4 Seg Neutrophils % 82.3 Lymphocytes % 9.2 Monocytes % 7.0 Eosinophils % 1.0 Basophils % 0.1 Neutrophils # 11.4 H Lymphocytes # 1.3 Monocytes # 1.0 Eosinophils # 0.1 Basophils # 0.0 Sodium 135 L Potassium 4.1 Chloride 105 Carbon Dioxide 26 BUN 34 H Creatinine 1.67 H Est GFR ( Amer) 50 L Est GFR (Non-Af Amer) 41 L BUN/Creatinine Ratio 20 Glucose 97 Calculated Osmolality 288 Lactic Acid 1.2 Calcium 9.4 Total Bilirubin 0.4 Direct Bilirubin 0.1 Indirect Bilirubin 0.3 AST 21 ALT 9 Alkaline Phosphatase 71 Serum Total Protein 6.0 L Albumin 3.3 L Globulin 2.7 Albumin/Globulin Ratio 1.2 Urine Color Urine Clarity Urine pH Ur Specific [place] Urine Protein Urine Glucose (UA) Urine Ketones Urine Blood Urine Nitrite Urine Bilirubin Urine Urobilinogen Ur Leukocyte Esterase Urine Microscopic RBC Urine Microscopic WBC Ur Squamous Epith Cells Urine Bacteria Hyaline Casts Ur Culture Indicated? - Impressions ITS Impressions Chest X-Ray 11/16/18 09:11 IMPRESSION: No acute pneumonia or significant atelectasis. D/ / 11/16/2018 10:55:05 Stiven Mayer MD / seb Interpreting Provider: Stiven Mayer MD Abdomen/Pelvis CT 11/16/18 10:49 IMPRESSION: 1. No acute intra-abdominal or intrapelvic process. Specifically, no evidence of abscess formation. 2. Previously identified left lower quadrant hernia has been repaired. Small bowel within the hernia on the prior study has been reduced. 3. Periumbilical ventral hernia is identified containing fat but no bowel. 4. Cholelithiasis as on the previous exam. D/ / Zafar Souza MD / Zafar Souza MD Interpreting Provider: Zafar Souza MD - Patient Status Disposition: Home, Self-Care Condition: Fair Functional capacity at discharge: independent ambulation Overall status at discharge: patient is progressing back to baseline - Discharge Instructions Instructions: Laparoscopic Herniorrhaphy (DC) Follow Up With: Sugar Enriquez MD [Primary Care Provider] - Andrzej Garcia MD [Partnered Physician] - 12/08/18 8:30 am Forms: ED Satisfaction Letter, Work/School Release Additional Instructions: General Surgical Discharge Instructions 1. No pushing, pulling, or lifting greater than 15 lbs for 4 weeks (depending upon procedure). 2. You may remove your dressings and shower beginning today, but no tub baths, soaking, or swimming for 2 weeks. 3. No driving for one weeks unless otherwise specified and then you may resume driving when you are off narcotics and are safe to react in a car. 4. Take ibuprofen every 8 hours for discomfort. If this does not relieve discomfort, you may take the as needed Percocet. Eat a small snack with pain medication as this will help reduce the risk of nausea. Take narcotics as directed. Do not take more narcotics then directed and do not share your narcotics with any other person. Do not drink alcohol while on narcotics. You can take the Zofran/ondansetron if needed for nausea or with a dose of narcotics to prevent nausea. 5. Take stool softeners (Colace) or a water based laxative (Miralax) while taking narcotics. You may hold for loose stools. 6. Report any fevers greater than 100.5F, increase abdominal discomfort, drainage that looks like pus, increased redness or pain at the surgical site, or any vomiting. 7. Report any pain in the calves, shortness of breath, or rapid heartbeat. 8. Follow-up in the office as directed. 9. If you were prescribed antibiotics, do not stop them without talking to your provider. - Diet and Activity Activity: increase activity as tolerated, return to school once cleared by your PCP/specialist Diet: advance to your usual diet <Bobby Ibarra - Last Filed: 11/17/18 14:06> Date of Encounter: 11/17/18 - Discharge Diagnosis (1) Abdominal pain Status: Acute Qualifiers: Abdominal location: generalized Qualified Code(s): R10.84 - Generalized abdominal pain (2) Post-operative pain Status: Acute (3) HTN (hypertension) Status: Acute Qualifiers: Qualified Code(s): I10 - Essential (primary) hypertension (4) Leukocytosis Status: Acute Qualifiers: Leukocytosis type: unspecified Qualified Code(s): D72.829 - Elevated white blood cell count, unspecified (5) Elevated serum creatinine Status: Acute (6) Hyponatremia Status: Acute General Surgery Exam Initial Vital Signs Temp Pulse Resp BP Pulse Ox 97.4 F L 85 16 170/98 96 11/16/18 08:40 11/16/18 08:40 11/16/18 08:40 11/16/18 08:40 11/16/18 08:40 - Hospital Course Hospital course: Mr. Emanuel is a 68 year old male - Time Spent with Patient Total time spent providing and/or coordinating discharge services: Date of admission: 11/16/18 13:27 Primary care physician: Sugar Enriquez Labs on day of discharge: Labs from last 24 hours 11/17/18 11/17/18 05:45 05:45 WBC 8.2 RBC 4.06 L Hgb 13.1 Hct 41.1 MCV 101.2 H MCH 32.3 MCHC 31.9 RDW 14.0 Plt Count 226 MPV 9.2 L Immature Gran % 0.6 Seg Neutrophils % 66.3 Lymphocytes % 19.7 Monocytes % 9.4 Eosinophils % 3.1 Basophils % 0.9 Neutrophils # 5.4 Lymphocytes # 1.6 Monocytes # 0.8 Eosinophils # 0.3 Basophils # 0.1 Sodium 138 Potassium 5.0 Chloride 106 Carbon Dioxide 25 BUN 26 H Creatinine 1.48 H Est GFR ( Amer) 57 L Est GFR (Non-Af Amer) 47 L BUN/Creatinine Ratio 18 Glucose 66 L Calculated Osmolality 289 Calcium 8.8 - Impressions ITS Impressions Chest X-Ray 11/16/18 09:11 IMPRESSION: No acute pneumonia or significant atelectasis. D/ / 11/16/2018 10:55:05 Stiven Mayer MD / seb Interpreting Provider: Stiven Mayer MD Abdomen/Pelvis CT 11/16/18 10:49 IMPRESSION: 1. No acute intra-abdominal or intrapelvic process. Specifically, no evidence of abscess formation. 2. Previously identified left lower quadrant hernia has been repaired. Small bowel within the hernia on the prior study has been reduced. 3. Periumbilical ventral hernia is identified containing fat but no bowel. 4. Cholelithiasis as on the previous exam. D/ / Zafar Souza MD / Zafar Souza MD Interpreting Provider: Zafar Souza MD - Attending Attestation I examined this patient and my medical decision-making was reviewed with the HYDROBLASTER. I agree with the documented findings, disposition and treatment plan as described to the extent set forth below. Pt much improved. Admitted to [facility] for post-op pain on POD#3 lap carlitos. Pain is much better tolerated and pt with +BM. F/U as scheduled.
== END 2018-11-17 10:26 | disposition home or self-care (01) ==
LOC: 3ANU 08:37 → EMEROOARM 08:37 → 3ANU 14:33
PROVIDERS: ADMIT Surgery; ATTEND Surgery

== ENCOUNTER 2019-07-16 14:48 | Inpatient (IN) ==
[2019-07-16] MEDS ORDERED: Isovue-370 500 ML BOTTLE IVP ONE ×2 (15:26→15:30)
[2019-07-16] MEDS ORDERED: *HR* FentaNYL (PF) 100 MCG/2 ML VIAL IVP ONE (15:26)
[2019-07-16 15:39] LABS: Basophils # 0.1 K/mcL (0.0-0.2); Basophils % 0.5 %; Eosinophils # 0.2 K/mcL (0.0-0.6); Eosinophils % 1.6 %; Hematocrit 34.4 % (37.5-50.1); Immature Granulocytes % 0.6 % (0-4); Lymphocytes # 1.3 K/mcL (0.6-4.6); Lymphocytes % 10.3 %; Mean Platelet Volume 9.1 fL (9.4-12.4); Monocytes % 7.4 %; Neutrophils # 10.2 K/mcL (1.6-8.9); Platelet Count 283 K/mcL (140-400); Red Blood Count 3.44 M/mcL (4.19-5.50); Red Cell Distribution Width 14.3 % (11.5-14.5); Segmented Neutrophils % 79.6 %; White Blood Count 12.8 K/mcL (4.3-11.1)
[2019-07-16 15:56] LABS: Prothrombin Time 11.1 Seconds (9.4-12.1)
[2019-07-16 15:57] LABS: Calcium 9.2 mg/dL (8.6-10.3); Potassium 4.8 mEq/L (3.5-5.1)
[2019-07-16 15:59] LABS: Activated Partial Thrombo Time 31.8 Seconds (26.0-36.0)
[2019-07-16] MEDS ORDERED: 0.9 % Sodium Chloride 1,000 ML IVC ONE (16:14)
[2019-07-16] MEDS ORDERED: *HR* HYDROmorphone (PF) 1 MG/ML SYRINGE IVP ONE ×3 (16:17→18:52)
[2019-07-16] MEDS ORDERED: *HR* Promethazine 25 MG/ML VIAL IVP ONE (16:18)
[2019-07-16] MEDS ORDERED: Vancomycin 1,000 MG VIAL ONE (19:41)
[2019-07-16] MEDS ORDERED: Heparin 1,000 UNITS/500 mL 1,000 ML ONE (19:41)
[2019-07-16] MEDS ORDERED: *HR* Propofol 200 MG/20 ML VIAL IVP ONE (19:42)
[2019-07-16] MEDS ORDERED: *HR* FentaNYL (PF) 100 MCG/2 ML VIAL ONE (19:42)
[2019-07-16] MEDS ORDERED: *HR* Rocuronium Bromide 50 MG/5 ML VIAL ONE (19:46)
[2019-07-16] MEDS ORDERED: Dexamethasone 4 MG/ML VIAL ONE (19:46)
[2019-07-16] MEDS ORDERED: Ondansetron 4 MG/2 ML VIAL ONE (19:46)
[2019-07-16] MEDS ORDERED: Lidocaine -MPF 2% 2 ML VIAL ONE (19:46)
[2019-07-16] MEDS ORDERED: *HR* Succinylcholine 200 MG/10 ML VIAL IVP ONE (19:46)
[2019-07-16] MEDS ORDERED: Acetaminophen IV 1,000 MG/100 ML INFUS..BTL ONE (19:59)
[2019-07-16] MEDS ORDERED: Famotidine 20 MG/2 ML VIAL ONE (20:00)
[2019-07-16] MEDS ORDERED: Naloxone 0.4 MG/ML INJ IVP PRN (20:15)
[2019-07-16] MEDS ORDERED: *HR* Alteplase (Cathflo) 2 MG VIAL IVP ONE (20:45)
[2019-07-16] MEDS ORDERED: EPHEDrine 50 MG/ML VIAL ONE (20:52)
[2019-07-16] MEDS ORDERED: *HR* Magnesium Sulfate 1 GM/2 ML VIAL ONE (21:42)
[2019-07-16] MEDS ORDERED: *HR* HYDROmorphone (PF) 1 MG/ML SYRINGE IVP PRN (22:53)
[2019-07-16] MEDS ORDERED: *HR* Labetalol 20 MG/4 ML SYRINGE IVP PRN (22:53)
[2019-07-16] MEDS ORDERED: *HR* HYDROmorphone 2 MG TABLET PO PRN (22:53)
[2019-07-16] MEDS ORDERED: *HR* OxyCODONE Immed Rel 5 MG TABLET PO PRN (22:53)
[2019-07-16] MEDS ORDERED: *HR* Promethazine 25 MG/ML VIAL IVP PRN (22:53)
[2019-07-17] MEDS ORDERED: *HR* Heparin 5,000 UNIT/ML VIAL IVP PRN ×2 (00:16)
[2019-07-17] MEDS ORDERED: *HR* Heparin 5,000 UNIT/ML VIAL IVP ONE (00:16)
[2019-07-17] MEDS ORDERED: Heparin 25,000 UNIT/250 ML D5W 25,000 UNIT/250 ML IV.SOLN IVC SCH (00:30)
[2019-07-17 01:38] LABS: Basophils # 0.1 K/mcL (0.0-0.2); Basophils % 0.4 %; Eosinophils # 0.1 K/mcL (0.0-0.6); Eosinophils % 0.5 %; Hematocrit 33.2 % (37.5-50.1); Hematocrit 33.5 % (37.5-50.1); Hemoglobin 10.5 g/dL (12.9-16.9); Immature Granulocytes % 0.6 % (0-4); Lymphocytes # 0.6 K/mcL (0.6-4.6); Lymphocytes % 4.3 %; Mean Corpuscular HGB Conc 31.3 g/dL (31.6-35.5); Mean Corpuscular HGB Conc 31.6 g/dL (31.6-35.5); Mean Corpuscular Hemoglobin 31.9 pg (28.0-33.3); Mean Corpuscular Hemoglobin 32.4 pg (28.0-33.3); Mean Corpuscular Volume 101.8 fL (83.0-100.0); Mean Corpuscular Volume 102.5 fL (83.0-100.0); Mean Platelet Volume 9.2 fL (9.4-12.4); Monocytes # 0.2 K/mcL (0.0-1.3); Monocytes % 1.7 %; Platelet Count 250 K/mcL (140-400); Platelet Count 257 K/mcL (140-400); Red Blood Count 3.24 M/mcL (4.19-5.50); Red Blood Count 3.29 M/mcL (4.19-5.50); Red Cell Distribution Width 14.5 % (11.5-14.5); Segmented Neutrophils % 92.5 %; White Blood Count 13.9 K/mcL (4.3-11.1); White Blood Count 14.1 K/mcL (4.3-11.1)
[2019-07-17 01:44] LABS: INR 1.1; Prothrombin Time 12.1 Seconds (9.4-12.1)
[2019-07-17 01:53] LABS: Heparin anti-factor XA UFH 1.74 IU/mL (0.30-0.70)
[2019-07-17 01:57] LABS: Calcium 8.6 mg/dL (8.6-10.3); Potassium 4.8 mEq/L (3.5-5.1)
[2019-07-17] MEDS: 0.9 % Sodium Chloride 1,000 ML IVC SCH ×2 (03:02→18:13)
[2019-07-17] MEDS: *HR* HYDROmorphone (PF) 1 MG/ML SYRINGE IVP PRN ×4 (04:57→21:46)
[2019-07-17 06:00] LABS: Hematocrit 32.7 % (37.5-50.1); Hemoglobin 10.4 g/dL (12.9-16.9)
[2019-07-17 08:58] LABS: Hematocrit 33.4 % (37.5-50.1); Hemoglobin 10.4 g/dL (12.9-16.9)
[2019-07-17 11:13] LABS: Hematocrit 32.7 % (37.5-50.1); Hemoglobin 10.4 g/dL (12.9-16.9)
[2019-07-17] MEDS ORDERED: Budesonide/Formoterol 160/4.5 1 PUFF INH IH PRN (13:43)
[2019-07-17 13:53] LABS: Hematocrit 31.6 % (37.5-50.1); Hemoglobin 9.9 g/dL (12.9-16.9)
[2019-07-17] MEDS: *HR* Heparin 5,000 UNIT/ML VIAL SQ SCH ×2 (15:05→21:46)
[2019-07-17] MEDS: Albuterol 2.5 MG/3 ML NEBULIZER IH PRN (22:31)
[2019-07-18 01:55] LABS: Basophils % 0.2 %; Eosinophils # 0.1 K/mcL (0.0-0.6); Eosinophils % 0.7 %; Hemoglobin 8.5 g/dL (12.9-16.9); Immature Granulocytes % 0.6 % (0-4); Lymphocytes # 1.5 K/mcL (0.6-4.6); Lymphocytes % 9.4 %; Mean Corpuscular HGB Conc 31.5 g/dL (31.6-35.5); Mean Corpuscular Volume 101.5 fL (83.0-100.0); Mean Platelet Volume 9.3 fL (9.4-12.4); Monocytes # 1.2 K/mcL (0.0-1.3); Monocytes % 7.4 %; Neutrophils # 13.1 K/mcL (1.6-8.9); Platelet Count 255 K/mcL (140-400); Red Blood Count 2.66 M/mcL (4.19-5.50); Red Cell Distribution Width 14.7 % (11.5-14.5); Segmented Neutrophils % 81.7 %
[2019-07-18 02:16] LABS: Calcium 8.4 mg/dL (8.6-10.3); Potassium 4.9 mEq/L (3.5-5.1)
[2019-07-18] MEDS: *HR* Heparin 5,000 UNIT/ML VIAL SQ SCH ×3 (06:41→21:58)
[2019-07-18] MEDS: 0.9 % Sodium Chloride 1,000 ML IVC SCH ×2 (06:44→17:18)
[2019-07-18] MEDS: *HR* HYDROmorphone (PF) 1 MG/ML SYRINGE IVP PRN (06:48)
[2019-07-18] MEDS ORDERED: Acetaminophen 325 MG TABLET PO PRN (11:53)
[2019-07-18] MEDS: Aspirin 81 MG TAB.CHEW PO SCH (13:08)
[2019-07-18] MEDS: *HR* HYDROcodone/Acet 5/325 mg TABLET PO PRN (13:08)
[2019-07-18 17:19] LABS: Basophils % 0.3 %; Eosinophils # 0.3 K/mcL (0.0-0.6); Eosinophils % 2.2 %; Hematocrit 26.5 % (37.5-50.1); Hemoglobin 8.6 g/dL (12.9-16.9); Immature Granulocytes % 0.7 % (0-4); Lymphocytes # 1.7 K/mcL (0.6-4.6); Lymphocytes % 14.9 %; Mean Corpuscular HGB Conc 32.5 g/dL (31.6-35.5); Mean Corpuscular Hemoglobin 33.2 pg (28.0-33.3); Mean Corpuscular Volume 102.3 fL (83.0-100.0); Mean Platelet Volume 8.9 fL (9.4-12.4); Monocytes % 8.6 %; Neutrophils # 8.5 K/mcL (1.6-8.9); Platelet Count 231 K/mcL (140-400); Red Blood Count 2.59 M/mcL (4.19-5.50); Red Cell Distribution Width 15.1 % (11.5-14.5); Segmented Neutrophils % 73.3 %; White Blood Count 11.6 K/mcL (4.3-11.1)
[2019-07-18 18:11] LABS: Bilirubin,Urine Negative (Negative); Blood,Urine Large (Negative); Clarity,Urine Clear (Clear); Color,Urine Yellow (Yellow); Glucose,Urine (UA) Normal (Normal); Ketones,Urine Negative (Negative); Leukocyte Esterase,Urine Negative (Negative); Nitrite,Urine Negative (Negative); Protein,Urine 30 mg/dL (Neg-Trace); Urobilinogen,Urine Normal (Normal)
[2019-07-18 18:13] LABS: Bacteria,Urine None Seen per hpf (None-Few); Hyaline Casts,Urine None Seen per lpf (None-Few); RBC,Urine 15-30 per hpf (0-3); Squamous Epithelial Cell,Urine None Seen per lpf (None-Few)
[2019-07-18 18:19] LABS: Sodium, Urine 63.3 mEq/L
[2019-07-18] MEDS: Albuterol 2.5 MG/3 ML NEBULIZER IH PRN (22:04)
[2019-07-19] MEDS: *HR* OxyCODONE Immed Rel 5 MG TABLET PO PRN ×2 (02:32→11:04)
[2019-07-19] MEDS: 0.9 % Sodium Chloride 1,000 ML IVC SCH ×3 (03:13→13:36)
[2019-07-19] MEDS ORDERED: *HR* LORazepam 2 MG/ML VIAL IVP ONE (04:25)
[2019-07-19 05:57] LABS: Basophils # 0.1 K/mcL (0.0-0.2); Basophils % 0.4 %; Eosinophils # 0.4 K/mcL (0.0-0.6); Hematocrit 26.7 % (37.5-50.1); Hemoglobin 8.5 g/dL (12.9-16.9); Immature Granulocytes % 0.4 % (0-4); Lymphocytes # 1.8 K/mcL (0.6-4.6); Mean Corpuscular HGB Conc 31.8 g/dL (31.6-35.5); Mean Corpuscular Hemoglobin 32.4 pg (28.0-33.3); Mean Corpuscular Volume 101.9 fL (83.0-100.0); Mean Platelet Volume 9.2 fL (9.4-12.4); Monocytes # 1.2 K/mcL (0.0-1.3); Monocytes % 9.7 %; Neutrophils # 8.6 K/mcL (1.6-8.9); Platelet Count 253 K/mcL (140-400); Red Blood Count 2.62 M/mcL (4.19-5.50); Segmented Neutrophils % 71.5 %
[2019-07-19 06:16] LABS: Calcium 8.5 mg/dL (8.6-10.3); Potassium 4.9 mEq/L (3.5-5.1)
[2019-07-19] MEDS: *HR* Heparin 5,000 UNIT/ML VIAL SQ SCH ×3 (06:39→20:44)
[2019-07-19] MEDS: Aspirin 81 MG TAB.CHEW PO SCH (07:56)
[2019-07-19] MEDS ORDERED: *HR* LORazepam 2 MG/ML VIAL IVP PRN ×3 (09:37)
[2019-07-19] MEDS: *HR* HYDROmorphone PF 0.5 MG/0.5 ML SYRINGE IVP PRN (11:14)
[2019-07-19 13:55] LABS: Complement C3 87 mg/dL (87-200)
[2019-07-19 18:24] LABS: Thyroid Stimulating Hormone 3.272 mcIU/mL (0.340-5.600)
[2019-07-19 18:34] LABS: Folate 12.8 ng/mL (3.0-16.0)
[2019-07-19] MEDS: *HR* HYDROcodone/Acet 5/325 mg TABLET PO PRN (20:45)
[2019-07-19] MEDS: Nicotine 7 MG PATCH.TD24 TD SCH (20:46)
[2019-07-20] MEDS: *HR* OxyCODONE Immed Rel 5 MG TABLET PO PRN ×2 (00:07→19:51)
[2019-07-20 03:58] LABS: Basophils # 0.1 K/mcL (0.0-0.2); Basophils % 0.7 %; Eosinophils # 0.3 K/mcL (0.0-0.6); Eosinophils % 2.8 %; Hematocrit 26.4 % (37.5-50.1); Hemoglobin 8.4 g/dL (12.9-16.9); Immature Granulocytes % 0.4 % (0-4); Lymphocytes # 1.4 K/mcL (0.6-4.6); Lymphocytes % 13.7 %; Mean Corpuscular HGB Conc 31.8 g/dL (31.6-35.5); Mean Corpuscular Hemoglobin 32.6 pg (28.0-33.3); Mean Corpuscular Volume 102.3 fL (83.0-100.0); Mean Platelet Volume 9.2 fL (9.4-12.4); Monocytes # 0.9 K/mcL (0.0-1.3); Neutrophils # 7.7 K/mcL (1.6-8.9); Platelet Count 247 K/mcL (140-400); Red Blood Count 2.58 M/mcL (4.19-5.50); Red Cell Distribution Width 15.3 % (11.5-14.5); Segmented Neutrophils % 73.4 %; White Blood Count 10.5 K/mcL (4.3-11.1)
[2019-07-20 04:16] LABS: Calcium 8.2 mg/dL (8.6-10.3); Potassium 5.2 mEq/L (3.5-5.1)
[2019-07-20] MEDS: *HR* HYDROmorphone PF 0.5 MG/0.5 ML SYRINGE IVP PRN ×3 (04:46→15:27)
[2019-07-20] MEDS: *HR* Heparin 5,000 UNIT/ML VIAL SQ SCH (06:00)
[2019-07-20] MEDS: *HR* HYDROcodone/Acet 5/325 mg TABLET PO PRN ×3 (06:00→18:54)
[2019-07-20] MEDS: 0.9 % Sodium Chloride 1,000 ML IVC SCH ×3 (08:57→19:50)
[2019-07-20] MEDS: Nicotine 7 MG PATCH.TD24 TD SCH (08:58)
[2019-07-20] MEDS: Aspirin 81 MG TAB.CHEW PO SCH (08:59)
[2019-07-20] MEDS ORDERED: Folic Acid 1 MG TABLET PO SCH (09:00)
[2019-07-20] MEDS ORDERED: Thiamine (B-1) 100 MG TABLET PO SCH (09:00)
[2019-07-20] MEDS ORDERED: Vitamin B Complex/Vit C/Vit E 1 EACH TABLET PO SCH (09:00)
[2019-07-20] MEDS ORDERED: *HR* Heparin 5,000 UNIT/ML VIAL IVP ONE (11:02)
[2019-07-20] MEDS ORDERED: *HR* Heparin 5,000 UNIT/ML VIAL IVP PRN ×2 (11:02)
[2019-07-20 11:23] LABS: Hematocrit 27.2 % (37.5-50.1); Hemoglobin 8.5 g/dL (12.9-16.9); Mean Corpuscular HGB Conc 31.3 g/dL (31.6-35.5); Mean Corpuscular Hemoglobin 31.8 pg (28.0-33.3); Mean Corpuscular Volume 101.9 fL (83.0-100.0); Mean Platelet Volume 8.9 fL (9.4-12.4); Platelet Count 262 K/mcL (140-400); Red Blood Count 2.67 M/mcL (4.19-5.50); Red Cell Distribution Width 15.3 % (11.5-14.5); White Blood Count 11.3 K/mcL (4.3-11.1)
[2019-07-20 11:30] LABS: Heparin anti-factor XA UFH < 0.04 IU/mL (0.30-0.70)
[2019-07-20] MEDS: Heparin 25,000 UNIT/250 ML D5W 25,000 UNIT/250 ML IV.SOLN IVC SCH (12:37)
[2019-07-20 12:49] LABS: Albumin 3.1 g/dL (3.5-5.7); Albumin/Globulin Ratio 1.3 (1.1-2.2); Bilirubin,Total 0.5 mg/dL (0.3-1.0); Calcium 8.6 mg/dL (8.6-10.3); Globulin 2.4 g/dL (2.4-3.5); Potassium 5.1 mEq/L (3.5-5.1); Total Protein 5.5 g/dL (6.4-8.9)
[2019-07-20] MEDS ORDERED: Perflutren Lipid Microsphere 1.3 ML in 0.9 % Sodium Chloride 8.7 ML IVP ONE (19:39)
[2019-07-20] MEDS ORDERED: QUEtiapine Fumarate 25 MG TABLET PO SCH (21:00)
[2019-07-20] MEDS ORDERED: QUEtiapine Fumarate 25 MG TABLET PO PRN (21:00)
[2019-07-21 01:18] LABS: Hemoglobin 8.1 g/dL (12.9-16.9); Mean Corpuscular HGB Conc 32.4 g/dL (31.6-35.5); Mean Corpuscular Hemoglobin 32.8 pg (28.0-33.3); Mean Corpuscular Volume 101.2 fL (83.0-100.0); Mean Platelet Volume 8.8 fL (9.4-12.4); Platelet Count 254 K/mcL (140-400); Red Blood Count 2.47 M/mcL (4.19-5.50); Red Cell Distribution Width 15.2 % (11.5-14.5); White Blood Count 11.1 K/mcL (4.3-11.1)
[2019-07-21 01:38] LABS: Calcium 8.5 mg/dL (8.6-10.3); Potassium 4.8 mEq/L (3.5-5.1)
[2019-07-21] MEDS: *HR* OxyCODONE Immed Rel 5 MG TABLET PO PRN ×3 (02:06→19:58)
[2019-07-21] MEDS: Aspirin 81 MG TAB.CHEW PO SCH (07:55)
[2019-07-21] MEDS: Nicotine 7 MG PATCH.TD24 TD SCH (07:55)
[2019-07-21] MEDS ORDERED: QUEtiapine Fumarate 25 MG TABLET PO PRN (12:57)
[2019-07-21] MEDS: *HR* HYDROcodone/Acet 5/325 mg TABLET PO PRN (15:04)
[2019-07-21] MEDS: Heparin 25,000 UNIT/250 ML D5W 25,000 UNIT/250 ML IV.SOLN IVC SCH (15:45)
[2019-07-21 16:22] LABS: Bilirubin,Urine Negative (Negative); Blood,Urine Large (Negative); Clarity,Urine Clear (Clear); Color,Urine Yellow (Yellow); Glucose,Urine (UA) Normal (Normal); Ketones,Urine Negative (Negative); Leukocyte Esterase,Urine Negative (Negative); Nitrite,Urine Negative (Negative); Protein,Urine 30 mg/dL (Neg-Trace); Specific Gravity,Urine 1.016 (1.010-1.025); Urobilinogen,Urine Normal (Normal)
[2019-07-21 16:24] LABS: Bacteria,Urine None Seen per hpf (None-Few); Hyaline Casts,Urine None Seen per lpf (None-Few); RBC,Urine 30-50 per hpf (0-3); Squamous Epithelial Cell,Urine Few per lpf (None-Few); WBC,Urine 0-3 per hpf (0-3)
[2019-07-21] MEDS: *HR* Acetylcysteine 20% 600 MG/3 ML ORAL SYRINGE PO SCH (19:58)
[2019-07-22 03:00] LABS: Basophils % 0.3 %; Eosinophils # 0.3 K/mcL (0.0-0.6); Eosinophils % 2.5 %; Hematocrit 29.1 % (37.5-50.1); Hemoglobin 9.1 g/dL (12.9-16.9); Hemoglobin 9.3 g/dL (12.9-16.9); Immature Granulocytes % 0.6 % (0-4); Lymphocytes % 7.2 %; Mean Corpuscular HGB Conc 32.5 g/dL (31.6-35.5); Mean Corpuscular Hemoglobin 32.4 pg (28.0-33.3); Mean Corpuscular Hemoglobin 32.7 pg (28.0-33.3); Mean Corpuscular Volume 100.7 fL (83.0-100.0); Mean Corpuscular Volume 101.4 fL (83.0-100.0); Mean Platelet Volume 8.8 fL (9.4-12.4); Mean Platelet Volume 8.9 fL (9.4-12.4); Monocytes # 1.2 K/mcL (0.0-1.3); Neutrophils # 10.8 K/mcL (1.6-8.9); Platelet Count 269 K/mcL (140-400); Platelet Count 286 K/mcL (140-400); Red Blood Count 2.78 M/mcL (4.19-5.50); Red Blood Count 2.87 M/mcL (4.19-5.50); Red Cell Distribution Width 14.9 % (11.5-14.5); Segmented Neutrophils % 80.4 %; White Blood Count 13.4 K/mcL (4.3-11.1); White Blood Count 13.6 K/mcL (4.3-11.1)
[2019-07-22 03:19] LABS: Calcium 8.8 mg/dL (8.6-10.3); Potassium 4.5 mEq/L (3.5-5.1)
[2019-07-22] MEDS: *HR* HYDROcodone/Acet 5/325 mg TABLET PO PRN (03:59)
[2019-07-22] MEDS ORDERED: *HR* Heparin 10,000 UNIT/10 ML VIAL ONE (08:09)
[2019-07-22] MEDS ORDERED: Isovue-300 200 mL Infus..BTL ONE ×2 (08:09)
[2019-07-22] MEDS: Aspirin 81 MG TAB.CHEW PO SCH (08:17)
[2019-07-22] MEDS: Nicotine 7 MG PATCH.TD24 TD SCH (08:17)
[2019-07-22] MEDS ORDERED: 0.9 % Sodium Chloride 1,000 ML ONE ×2 (08:17→08:53)
[2019-07-22] MEDS ORDERED: *HR* Midazolam HCl 2 MG/2 ML VIAL ONE (09:00)
[2019-07-22] MEDS ORDERED: *HR* FentaNYL (PF) 100 MCG/2 ML VIAL ONE (09:00)
[2019-07-22] MEDS ORDERED: Heparin 1,000 UNITS/500 mL 500 ML ONE (10:19)
[2019-07-22] MEDS: 0.9 % Sodium Chloride 1,000 ML IVC SCH ×2 (12:51→22:58)
[2019-07-22] MEDS ORDERED: *HR* Atropine Sulfate 1 MG/10 ML SYRINGE IVP PRN (13:44)
[2019-07-22] MEDS ORDERED: Sulfamethoxazole/Trimeth DS 1 EACH TABLET PO SCH (13:45)
[2019-07-22] MEDS: *HR* Acetylcysteine 20% 600 MG/3 ML ORAL SYRINGE PO SCH ×2 (16:04→20:16)
[2019-07-22] MEDS: Budesonide/Formoterol 160/4.5 1 PUFF INH IH SCH (19:56)
[2019-07-22] MEDS: Doxycycline 100 MG CAPSULE PO SCH (20:14)
[2019-07-23 01:42] LABS: Basophils % 0.2 %; Eosinophils # 0.1 K/mcL (0.0-0.6); Eosinophils % 0.9 %; Hematocrit 26.1 % (37.5-50.1); Hemoglobin 8.2 g/dL (12.9-16.9); Immature Granulocytes % 0.5 % (0-4); Lymphocytes # 0.9 K/mcL (0.6-4.6); Mean Corpuscular HGB Conc 31.4 g/dL (31.6-35.5); Mean Corpuscular Hemoglobin 31.9 pg (28.0-33.3); Mean Corpuscular Volume 101.6 fL (83.0-100.0); Mean Platelet Volume 9.1 fL (9.4-12.4); Monocytes # 1.3 K/mcL (0.0-1.3); Monocytes % 9.5 %; Neutrophils # 10.9 K/mcL (1.6-8.9); Platelet Count 275 K/mcL (140-400); Red Blood Count 2.57 M/mcL (4.19-5.50); Segmented Neutrophils % 81.9 %; White Blood Count 13.3 K/mcL (4.3-11.1)
[2019-07-23 01:49] LABS: Calcium 8.3 mg/dL (8.6-10.3); Potassium 4.4 mEq/L (3.5-5.1)
[2019-07-23] MEDS: *HR* OxyCODONE Immed Rel 5 MG TABLET PO PRN ×3 (01:56→21:42)
[2019-07-23] MEDS: Heparin 25,000 UNIT/250 ML D5W 25,000 UNIT/250 ML IV.SOLN IVC SCH (03:23)
[2019-07-23] MEDS: Doxycycline 100 MG CAPSULE PO SCH ×2 (07:54→21:42)
[2019-07-23] MEDS: 0.9 % Sodium Chloride 1,000 ML IVC SCH (07:54)
[2019-07-23] MEDS: Aspirin 81 MG TAB.CHEW PO SCH (07:54)
[2019-07-23] MEDS: Budesonide/Formoterol 160/4.5 1 PUFF INH IH SCH ×2 (07:55→20:28)
[2019-07-23] MEDS: Nicotine 7 MG PATCH.TD24 TD SCH (07:55)
[2019-07-23] MEDS: *HR* Acetylcysteine 20% 600 MG/3 ML ORAL SYRINGE PO SCH (08:05)
[2019-07-23] MEDS: *HR* HYDROcodone/Acet 5/325 mg TABLET PO PRN (14:11)
[2019-07-24 01:56] LABS: Basophils % 0.3 %; Eosinophils # 0.1 K/mcL (0.0-0.6); Eosinophils % 0.9 %; Hematocrit 23.6 % (37.5-50.1); Hemoglobin 7.7 g/dL (12.9-16.9); Immature Granulocytes % 0.9 % (0-4); Lymphocytes # 1.2 K/mcL (0.6-4.6); Lymphocytes % 8.4 %; Mean Corpuscular HGB Conc 32.6 g/dL (31.6-35.5); Mean Corpuscular Hemoglobin 32.8 pg (28.0-33.3); Mean Corpuscular Volume 100.4 fL (83.0-100.0); Mean Platelet Volume 9.8 fL (9.4-12.4); Monocytes # 1.3 K/mcL (0.0-1.3); Monocytes % 9.4 %; Neutrophils # 11.3 K/mcL (1.6-8.9); Nucleated Red Blood Cells 0.1 /100 WBC (0); Platelet Count 273 K/mcL (140-400); Red Blood Count 2.35 M/mcL (4.19-5.50); Red Cell Distribution Width 15.3 % (11.5-14.5); Segmented Neutrophils % 80.1 %; White Blood Count 14.1 K/mcL (4.3-11.1)
[2019-07-24 02:17] LABS: Calcium 8.2 mg/dL (8.6-10.3); Potassium 4.4 mEq/L (3.5-5.1)
[2019-07-24] MEDS ORDERED: ceFAZolin 2,000 MG in 0.9 % Sodium Chloride 100 ML IVPB ONE (07:00)
[2019-07-24] MEDS: 0.9 % Sodium Chloride 1,000 ML IVC SCH ×2 (07:10→17:22)
[2019-07-24] MEDS ORDERED: Heparin 1,000 UNITS/500 mL 1,000 ML ONE (07:11)
[2019-07-24] MEDS ORDERED: *HR* Propofol 200 MG/20 ML VIAL IVP ONE (07:14)
[2019-07-24] MEDS ORDERED: *HR* Rocuronium Bromide 50 MG/5 ML VIAL ONE (07:14)
[2019-07-24] MEDS ORDERED: *HR* Succinylcholine 200 MG/10 ML VIAL IVP ONE (07:14)
[2019-07-24] MEDS ORDERED: *HR* Phenylephrine 10 MG/ML VIAL ONE (07:14)
[2019-07-24] MEDS ORDERED: Lidocaine -MPF 2% 2 ML VIAL ONE ×2 (07:14→08:15)
[2019-07-24] MEDS ORDERED: *HR* FentaNYL (PF) 100 MCG/2 ML VIAL ONE ×2 (07:14→10:47)
[2019-07-24] MEDS ORDERED: EPHEDrine 50 MG/ML VIAL ONE (07:27)
[2019-07-24] MEDS ORDERED: Heparin 1,000 UNITS/500 mL 500 ML ONE (07:52)
[2019-07-24] MEDS ORDERED: Ondansetron 4 MG/2 ML VIAL IVP ONE ×2 (07:57→16:40)
[2019-07-24] MEDS ORDERED: *HR* HYDROmorphone PF 0.5 MG/0.5 ML SYRINGE IVP PRN (07:57)
[2019-07-24] MEDS ORDERED: *HR* OxyCODONE Immed Rel 5 MG TABLET PO PRN (07:57)
[2019-07-24] MEDS ORDERED: ceFAZolin 1,000 MG, Sodium Chloride IRRigation 1,000 ML IR ONE (08:00)
[2019-07-24] MEDS ORDERED: Lidocaine Jelly 6ml 1 APPL/6 ML JEL.PF.APP ONE (09:01)
[2019-07-24] MEDS ORDERED: Ondansetron 4 MG/2 ML VIAL ONE ×2 (09:10→14:11)
[2019-07-24] MEDS ORDERED: Dexamethasone 4 MG/ML VIAL ONE (09:10)
[2019-07-24] MEDS: Budesonide/Formoterol 160/4.5 1 PUFF INH IH SCH ×2 (10:44→21:37)
[2019-07-24] MEDS: Doxycycline 100 MG CAPSULE PO SCH ×2 (11:20→20:27)
[2019-07-24] MEDS: Aspirin 81 MG TAB.CHEW PO SCH (11:20)
[2019-07-24] MEDS ORDERED: *HR* Heparin 5,000 UNIT/ML VIAL ONE ×2 (11:54→12:54)
[2019-07-24] MEDS ORDERED: Acetaminophen IV 1,000 MG/100 ML INFUS..BTL ONE (12:13)
[2019-07-24] MEDS ORDERED: Neostigmine Methylsulfate 3 MG/3 ML SYRINGE ONE (14:12)
[2019-07-24] MEDS ORDERED: *HR* Labetalol 20 MG/4 ML SYRINGE IVP ONE (14:38)
[2019-07-24] MEDS ORDERED: *HR* Promethazine 25 MG/ML VIAL IVP PRN (16:40)
[2019-07-24] MEDS ORDERED: Ondansetron 4 MG/2 ML VIAL IVP PRN (16:40)
[2019-07-24] MEDS ORDERED: Albuterol 2.5 MG/3 ML NEBULIZER IH PRN (16:40)
[2019-07-24] MEDS ORDERED: Naloxone 0.4 MG/ML INJ IVP PRN ×2 (16:40)
[2019-07-24] MEDS ORDERED: Acetaminophen 325 MG TABLET PO PRN (16:40)
[2019-07-24] MEDS: ceFAZolin 2,000 MG in 0.9 % Sodium Chloride 100 ML IVPB SCH (17:31)
[2019-07-24] MEDS: Nicotine 7 MG PATCH.TD24 TD SCH (17:39)
[2019-07-24] MEDS: *HR* OxyCODONE Immed Rel 5 MG TABLET PO PRN (20:29)
[2019-07-24] MEDS: QUEtiapine Fumarate 25 MG TABLET PO PRN (21:26)
[2019-07-25] MEDS: ceFAZolin 2,000 MG in 0.9 % Sodium Chloride 100 ML IVPB SCH ×2 (01:27→08:14)
[2019-07-25] MEDS: 0.9 % Sodium Chloride 1,000 ML IVC SCH ×3 (03:45→23:45)
[2019-07-25 05:34] LABS: Calcium 7.9 mg/dL (8.6-10.3); Potassium 4.6 mEq/L (3.5-5.1)
[2019-07-25 05:36] LABS: % Iron Saturation 7 % (20-55); Iron 15 mcg/dL (65-175); Transferrin 151 mg/dL (203-362)
[2019-07-25 05:54] LABS: Ferritin 79 ng/mL (20-250)
[2019-07-25 06:03] LABS: Basophils % 0.1 %; Hematocrit 23.7 % (37.5-50.1); Hemoglobin 7.6 g/dL (12.9-16.9); Immature Granulocytes % 0.6 % (0-4); Lymphocytes # 0.5 K/mcL (0.6-4.6); Lymphocytes % 3.4 %; Mean Corpuscular HGB Conc 32.1 g/dL (31.6-35.5); Mean Corpuscular Hemoglobin 31.5 pg (28.0-33.3); Mean Corpuscular Volume 98.3 fL (83.0-100.0); Monocytes # 1.1 K/mcL (0.0-1.3); Monocytes % 6.9 %; Neutrophils # 13.7 K/mcL (1.6-8.9); Nucleated Red Blood Cells 0.1 /100 WBC (0); Platelet Count 252 K/mcL (140-400); Red Blood Count 2.41 M/mcL (4.19-5.50); Red Cell Distribution Width 17.4 % (11.5-14.5); White Blood Count 15.4 K/mcL (4.3-11.1)
[2019-07-25] MEDS: Budesonide/Formoterol 160/4.5 1 PUFF INH IH SCH ×2 (07:51→20:26)
[2019-07-25] MEDS: *HR* HYDROcodone/Acet 5/325 mg TABLET PO PRN ×2 (08:10→14:25)
[2019-07-25] MEDS: Aspirin 81 MG TAB.CHEW PO SCH (08:10)
[2019-07-25] MEDS: Doxycycline 100 MG CAPSULE PO SCH ×2 (08:10→20:17)
[2019-07-25] MEDS: Nicotine 7 MG PATCH.TD24 TD SCH (08:11)
[2019-07-25] MEDS: *HR* OxyCODONE Immed Rel 5 MG TABLET PO PRN (20:16)
[2019-07-25] MEDS: QUEtiapine Fumarate 25 MG TABLET PO PRN (20:17)
[2019-07-26 05:40] LABS: Basophils % 0.1 %; Eosinophils # 0.1 K/mcL (0.0-0.6); Eosinophils % 0.6 %; Hematocrit 25.9 % (37.5-50.1); Hemoglobin 8.6 g/dL (12.9-16.9); Immature Granulocytes % 0.5 % (0-4); Lymphocytes # 0.9 K/mcL (0.6-4.6); Mean Corpuscular HGB Conc 33.2 g/dL (31.6-35.5); Mean Corpuscular Volume 96.3 fL (83.0-100.0); Mean Platelet Volume 9.3 fL (9.4-12.4); Monocytes % 7.4 %; Neutrophils # 11.3 K/mcL (1.6-8.9); Platelet Count 238 K/mcL (140-400); Red Blood Count 2.69 M/mcL (4.19-5.50); Red Cell Distribution Width 17.1 % (11.5-14.5); Segmented Neutrophils % 84.4 %; White Blood Count 13.4 K/mcL (4.3-11.1)
[2019-07-26 05:59] LABS: Calcium 8.2 mg/dL (8.6-10.3); Potassium 4.6 mEq/L (3.5-5.1)
[2019-07-26] MEDS: Doxycycline 100 MG CAPSULE PO SCH ×2 (08:02→19:40)
[2019-07-26] MEDS: Aspirin 81 MG TAB.CHEW PO SCH (08:02)
[2019-07-26] MEDS: Nicotine 7 MG PATCH.TD24 TD SCH (08:02)
[2019-07-26] MEDS: 0.9 % Sodium Chloride 1,000 ML IVC SCH (09:47)
[2019-07-26] MEDS: Budesonide/Formoterol 160/4.5 1 PUFF INH IH SCH ×2 (10:35→20:10)
[2019-07-26] MEDS ORDERED: 0.9 % Sodium Chloride 1,000 ML IVC SCH (11:39)
[2019-07-26] MEDS: *HR* OxyCODONE Immed Rel 5 MG TABLET PO PRN ×2 (13:41→19:43)
[2019-07-27] MEDS: *HR* HYDROcodone/Acet 5/325 mg TABLET PO PRN (03:52)
[2019-07-27 07:44] LABS: Basophils % 0.1 %; Eosinophils % 0.1 %; Hematocrit 27.2 % (37.5-50.1); Hemoglobin 8.9 g/dL (12.9-16.9); Immature Granulocytes % 0.5 % (0-4); Lymphocytes # 0.7 K/mcL (0.6-4.6); Mean Corpuscular HGB Conc 32.7 g/dL (31.6-35.5); Mean Corpuscular Volume 97.8 fL (83.0-100.0); Mean Platelet Volume 9.6 fL (9.4-12.4); Neutrophils # 15.5 K/mcL (1.6-8.9); Nucleated Red Blood Cells 0.1 /100 WBC (0); Platelet Count 268 K/mcL (140-400); Red Blood Count 2.78 M/mcL (4.19-5.50); Red Cell Distribution Width 16.4 % (11.5-14.5); Segmented Neutrophils % 89.3 %; White Blood Count 17.4 K/mcL (4.3-11.1)
[2019-07-27 08:05] LABS: BUN/Creatinine Ratio 37 (6-26); Blood Urea Nitrogen 50 mg/dL (8-23); Carbon Dioxide 16 mEq/L (23-29); Chloride 112 mEq/L (98-107); Glucose 94 mg/dL (70-105); Osmolality,Calculated 297 (280-300); Potassium 4.6 mEq/L (3.5-5.1); Sodium 137 mEq/L (136-145); eGFR For African Americans > 60 (> 60); eGFR For Non-African Americans 52 (> 60)
[2019-07-27] MEDS: Nicotine 7 MG PATCH.TD24 TD SCH (08:33)
[2019-07-27] MEDS: Doxycycline 100 MG CAPSULE PO SCH ×3 (08:33→21:04)
[2019-07-27] MEDS: Aspirin 81 MG TAB.CHEW PO SCH (08:33)
[2019-07-27] MEDS: Budesonide/Formoterol 160/4.5 1 PUFF INH IH SCH ×2 (08:54→20:28)
[2019-07-27] MEDS ORDERED: *HR* Rocuronium Bromide 50 MG/5 ML VIAL ONE (12:58)
[2019-07-27] MEDS ORDERED: Lidocaine -MPF 2% 2 ML VIAL ONE (12:58)
[2019-07-27] MEDS ORDERED: Ondansetron 4 MG/2 ML VIAL ONE (12:58)
[2019-07-27] MEDS ORDERED: *HR* Succinylcholine 200 MG/10 ML VIAL IVP ONE (12:58)
[2019-07-27] MEDS ORDERED: Dexamethasone 4 MG/ML VIAL ONE (12:58)
[2019-07-27] MEDS ORDERED: *HR* FentaNYL (PF) 100 MCG/2 ML VIAL ONE (12:58)
[2019-07-27] MEDS ORDERED: Albumin Human 5% 12.5 GM/250 ML IV.SOLN ONE (14:58)
[2019-07-27] MEDS ORDERED: Acetaminophen IV 1,000 MG/100 ML INFUS..BTL ONE (15:09)
[2019-07-27] MEDS ORDERED: ceFAZolin 1,000 MG, Sodium Chloride IRRigation 1,000 ML IR ONE ×2 (15:30→18:46)
[2019-07-27] MEDS ORDERED: *HR* Promethazine 25 MG/ML VIAL IVP PRN (16:48)
[2019-07-27] MEDS ORDERED: *HR* OxyCODONE Immed Rel 5 MG TABLET PO PRN (16:48)
[2019-07-27] MEDS ORDERED: Ondansetron 4 MG/2 ML VIAL IVP ONE ×2 (16:48→18:46)
[2019-07-27] MEDS ORDERED: *HR* HYDROmorphone PF 0.5 MG/0.5 ML SYRINGE IVP PRN (16:48)
[2019-07-27] MEDS ORDERED: Albuterol 2.5 MG/3 ML NEBULIZER IH PRN (18:46)
[2019-07-27] MEDS ORDERED: 0.9 % Sodium Chloride 1,000 ML IVC SCH ×2 (18:46)
[2019-07-27] MEDS ORDERED: Naloxone 0.4 MG/ML INJ IVP PRN ×2 (18:46)
[2019-07-27] MEDS ORDERED: Ondansetron 4 MG/2 ML VIAL IVP PRN (18:46)
[2019-07-27] MEDS ORDERED: QUEtiapine Fumarate 25 MG TABLET PO PRN (18:46)
[2019-07-27] MEDS ORDERED: Acetaminophen 325 MG TABLET PO PRN (18:46)
[2019-07-27] MEDS: ceFAZolin 2,000 MG in 0.9 % Sodium Chloride 100 ML IVPB SCH (23:51)
[2019-07-28] MEDS: *HR* OxyCODONE Immed Rel 5 MG TABLET PO PRN ×3 (04:17→19:38)
[2019-07-28 07:26] LABS: Basophils % 0.1 %; Hematocrit 22.7 % (37.5-50.1); Immature Granulocytes % 0.6 % (0-4); Lymphocytes # 0.6 K/mcL (0.6-4.6); Lymphocytes % 3.1 %; Mean Corpuscular HGB Conc 32.2 g/dL (31.6-35.5); Mean Corpuscular Hemoglobin 31.6 pg (28.0-33.3); Mean Corpuscular Volume 98.3 fL (83.0-100.0); Mean Platelet Volume 9.6 fL (9.4-12.4); Monocytes % 5.1 %; Neutrophils # 17.6 K/mcL (1.6-8.9); Platelet Count 267 K/mcL (140-400); Red Blood Count 2.31 M/mcL (4.19-5.50); Red Cell Distribution Width 16.9 % (11.5-14.5); Segmented Neutrophils % 91.1 %; White Blood Count 19.3 K/mcL (4.3-11.1)
[2019-07-28 07:45] LABS: BUN/Creatinine Ratio 46 (6-26); Blood Urea Nitrogen 60 mg/dL (8-23); Calcium 7.8 mg/dL (8.6-10.3); Carbon Dioxide 17 mEq/L (23-29); Chloride 113 mEq/L (98-107); Glucose 106 mg/dL (70-105); Osmolality,Calculated 309 (280-300); Potassium 4.5 mEq/L (3.5-5.1); Sodium 141 mEq/L (136-145); eGFR For African Americans > 60 (> 60); eGFR For Non-African Americans 55 (> 60)
[2019-07-28 07:55] LABS: Hemoglobin 7.3 g/dL (12.9-16.9)
[2019-07-28] MEDS: Budesonide/Formoterol 160/4.5 1 PUFF INH IH SCH ×2 (08:10→20:09)
[2019-07-28] MEDS: Doxycycline 100 MG CAPSULE PO SCH ×2 (08:48→19:44)
[2019-07-28] MEDS: Aspirin 81 MG TAB.CHEW PO SCH (08:48)
[2019-07-28] MEDS: ceFAZolin 2,000 MG in 0.9 % Sodium Chloride 100 ML IVPB SCH ×2 (08:49→17:22)
[2019-07-28] MEDS: Nicotine 7 MG PATCH.TD24 TD SCH (08:49)
[2019-07-28] MEDS: *HR* HYDROcodone/Acet 5/325 mg TABLET PO PRN (10:14)
[2019-07-29] MEDS: *HR* HYDROcodone/Acet 5/325 mg TABLET PO PRN ×2 (00:04→17:34)
[2019-07-29 03:13] LABS: Hematocrit 18.7 % (37.5-50.1); Mean Corpuscular Hemoglobin 31.5 pg (28.0-33.3); Mean Corpuscular Volume 101.6 fL (83.0-100.0); Mean Platelet Volume 9.8 fL (9.4-12.4); Platelet Count 260 K/mcL (140-400); Red Blood Count 1.84 M/mcL (4.19-5.50); White Blood Count 22.2 K/mcL (4.3-11.1)
[2019-07-29 03:16] LABS: Hemoglobin 5.8 g/dL (12.9-16.9)
[2019-07-29 03:27] LABS: BUN/Creatinine Ratio 54 (6-26); Blood Urea Nitrogen 75 mg/dL (8-23); Calcium 7.4 mg/dL (8.6-10.3); Carbon Dioxide 18 mEq/L (23-29); Chloride 115 mEq/L (98-107); Glucose 123 mg/dL (70-105); Osmolality,Calculated 310 (280-300); Potassium 4.7 mEq/L (3.5-5.1); Sodium 138 mEq/L (136-145); eGFR For African Americans > 60 (> 60); eGFR For Non-African Americans 50 (> 60)
[2019-07-29] MEDS: Budesonide/Formoterol 160/4.5 1 PUFF INH IH SCH ×2 (07:35→20:17)
[2019-07-29] MEDS ORDERED: 0.9 % Sodium Chloride 250 ML ONE (07:41)
[2019-07-29] MEDS: Nicotine 7 MG PATCH.TD24 TD SCH (10:07)
[2019-07-29] MEDS: Aspirin 81 MG TAB.CHEW PO SCH (10:07)
[2019-07-29] MEDS: Doxycycline 100 MG CAPSULE PO SCH ×2 (10:07→20:38)
[2019-07-29 17:03] LABS: VBG Ionized Calcium 1.02 mmol/L (1.15-1.35)
[2019-07-29 17:05] LABS: Hematocrit 22.7 % (37.5-50.1); Hemoglobin 7.2 g/dL (12.9-16.9)
[2019-07-29 21:06] LABS: Hematocrit 22.3 % (37.5-50.1); Hemoglobin 7.3 g/dL (12.9-16.9); Mean Corpuscular HGB Conc 32.7 g/dL (31.6-35.5); Mean Corpuscular Hemoglobin 31.6 pg (28.0-33.3); Mean Corpuscular Volume 96.5 fL (83.0-100.0); Mean Platelet Volume 10.5 fL (9.4-12.4); Platelet Count 205 K/mcL (140-400); Red Blood Count 2.31 M/mcL (4.19-5.50); Red Cell Distribution Width 16.8 % (11.5-14.5); White Blood Count 28.8 K/mcL (4.3-11.1)
[2019-07-30 02:06] LABS: Basophils % 0.1 %; Immature Granulocytes % 2.2 % (0-4); Lymphocytes % 3.3 %; Nucleated Red Blood Cells 0.6 /100 WBC (0)
[2019-07-30 02:07] LABS: Hematocrit 20.8 % (37.5-50.1); Hemoglobin 6.9 g/dL (12.9-16.9); Mean Corpuscular HGB Conc 33.2 g/dL (31.6-35.5); Mean Corpuscular Hemoglobin 32.2 pg (28.0-33.3); Mean Corpuscular Volume 97.2 fL (83.0-100.0); Mean Platelet Volume 10.5 fL (9.4-12.4); Monocytes # 2.3 K/mcL (0.0-1.3); Monocytes % 7.5 %; Neutrophils # 26.9 K/mcL (1.6-8.9); Platelet Count 197 K/mcL (140-400); Red Blood Count 2.14 M/mcL (4.19-5.50); Red Cell Distribution Width 16.9 % (11.5-14.5); Segmented Neutrophils % 86.9 %
[2019-07-30 02:09] LABS: White Blood Count 30.9 K/mcL (4.3-11.1)
[2019-07-30 02:22] LABS: Anisocytosis 1+ (Not Present)
[2019-07-30 02:23] LABS: Burr Cells 1+ (Not Present); Macrocytosis Present (Not Present); Platelet Estimate Normal (Normal); Polychromasia 1+ (Not Present)
[2019-07-30 02:24] LABS: Calcium 7.3 mg/dL (8.6-10.3); Potassium 5.1 mEq/L (3.5-5.1)
[2019-07-30 04:49] VITALS: BP 92/60
[2019-07-30] MEDS: Nicotine 7 MG PATCH.TD24 TD SCH (07:39)
[2019-07-30] MEDS: Doxycycline 100 MG CAPSULE PO SCH (07:40)
[2019-07-30] MEDS: Aspirin 81 MG TAB.CHEW PO SCH (07:40)
[2019-07-30] MEDS: Budesonide/Formoterol 160/4.5 1 PUFF INH IH SCH ×2 (07:57→20:03)
[2019-07-30] MEDS ORDERED: 0.9 % Sodium Chloride 1,000 ML IVC SCH (08:15)
[2019-07-30 08:16] LABS: Hematocrit 26.9 % (37.5-50.1)
[2019-07-30 08:18] LABS: Hemoglobin 8.8 g/dL (12.9-16.9)
== END 2019-07-30 14:23 | disposition expired | DRG 270 ==
LOC: 3NENU 14:48 → EMEROOARM 14:48 → 3NENU 19:28 → SUATTDRO 19:45
PROVIDERS: ADMIT Internal Medicine; ATTEND Internal Medicine